=== PATIENT | female | born 1945 | race Caucasian/White ===

== ENCOUNTER 2016-07-26 11:03 | Inpatient (IN) | payer MEDICARE ==
[~2016-07-26] VITALS: Ht 165.1 cm; Wt 60.8 kg
[2016-07-26] VITALS (7 sets, daily range): BP systolic 98–163; BP diastolic 59–90; PULSE 80–96; RESP 20–26; O2SAT 94–97
[~2016-07-26 11:03] MED LIST: ACET1TAB12 PO; ALBU2.5V4 INHALATION; ALBU90AE IH; ASPI-973 PO; CHOL100045 PO; CITA20TA11 PO; CYAN500T53 SL; FLUT9.9S NS; FUR20 PO; LORA0.5T PO; LORA1TAB PO; METO25TA6 PO; MULT-1018 PO; MV,I66.7 PO; OXYB10TA PO; POTA10CA42 PO; PROC-4 PO; RANI150T11 PO; SYMINH INHALATION; TIOT18CA3 IH; VIT1TABL83 PO
--- NOTE | 2016-07-26 11:05 | ED.REPORT ---
HPI-General Illness Date of Service July 26, 2016 ED Provider: The patient is a 71 year old female with history of lung cancer s/p left pneumonectomy, breast cancer s/p lumpectomy, upper arm blood clot related to a PICC line, COPD, hypertension, hyperlipidemia, prior pneumothorax, and atrial fibrillation who was brought to the emergency department by EMS from urgent care for shortness of breath that has been worsening over the last 2 weeks. The patient had a room air saturation of 77 % when she arrived at urgent care with otherwise stable vitals. Her oxygen saturation increased to 96 % on a nonrebreather. She also complains of symptoms on her tongue. She denies chest pain, sputum production or fever. She is on oxygen at home. The patient would want to be a full code and full intubation. Nursing Notes Stated Complaint: SOB Nursing Notes Reviewed: Yes Allergies: Coded Allergies: dextromethorphan (Verified Allergy, Severe, causes hives, 02/17/15) Replaces NYQUIL doxylamine (Verified Allergy, Severe, causes hives, 02/17/15) Replaces NYQUIL guaifenesin (Unverified Allergy, Severe, hives, 02/17/15) pseudoephedrine (Verified Allergy, Severe, causes hives, 02/17/15) Replaces NYQUIL hydrocodone (Verified Adverse Reaction, Intermediate, Nausea,Vomiting, ) oxycodone (Verified Adverse Reaction, Intermediate, Nausea,Vomiting, 02/17) Uncoded Allergies: NUNEZ DEPILLATORY (Allergy, Severe, SKIN RASH, 02/01/11) Scheduled Aspirin (Aspirin) 81 Mg Tablet 81 MG PO QAM Bupropion ER (Wellbutrin XL) 150 Mg Tab.er.24h 150 MG PO DAILY Cholecalciferol (Vitamin D3) (Vitamin D) 1,000 Unit Capsule 1,000 UNIT PO QAM Citalopram (Citalopram) 20 Mg Tablet 20 MG PO QAM Cyanocobalamin (Vitamin B-12) (Vitamin B-12) 500 Mcg Tab.subl 500 MCG SL QAM Furosemide (Furosemide) 20 Mg Tab 20 MG PO QAM Letrozole (Letrozole) 2.5 Mg Tablet 2.5 MG PO DAILY Metoprolol Tartrate (Metoprolol Tartrate) 25 Mg Tablet 25 MG PO DAILY Oxybutynin Chloride ER (Oxybutynin Chloride ER) 5 Mg Tab.er.24 5 MG PO DAILY Pilocarpine (Pilocarpine) 5 Mg Tablet 5 MG PO DAILY Potassium Chloride (Potassium Chloride) 10 Meq Capsule.er 10 MEQ PO DAILY TAKE WITH FOOD Ranitidine (Zantac) 150 Mg Tablet 150 MG PO QAM Vit B Comp/C/FA/Iron/Vit E (Vitamin B Complex Tablet) 1 Each Tablet 1 EACH PO DAILY Scheduled PRN Acetaminophen/Codeine 300-30mg (Tylenol/Codeine #3) 1 Each Tablet 1 TABLET PO Q6H PRN PRN Pain Lorazepam (Lorazepam) 1 Mg Tablet 0.5-1 MG PO BID PRN PRN For Anxiety Prochlorperazine Maleate (Compazine) 10 Mg Tablet 10 MG PO Q6H PRN PRN For Nausea General Time Seen by MD: 11:05 Chief Complaint Other (shortness of breath) Hx Obtained From: Patient, EMS Arrived By: Ambulance Sudden in Onset?: No Onset Occurred: More than a week ago... Symptom Duration: Since onset Severity: Current: No pain currently Severity: Maximum: No pain Recent Healthcare: No recent hospitalization, Recent doctor visit Similar Sx Previous: Yes Past Medical History Past Medical History Notes: Oncologist: Dr. Díaz The patient would want to be a full code and full intubation, discussed today 07/26/16 Past Medical History Lung cancer s/p pneumonectomy Breast cancer s/p lumpectomy Hx of upper arm blood clot related to a PICC line, no PEs COPD Hypertension Anxiety Hyperlipidemia GERD Depression Atrial fibrillation Hx of pneumothorax Hx of kidney failure Hx of lower GI bleeding Past Surgical History Left pneumonectomy Lumpectomy Family History Noncontributory Smoking History Unknown if Ever Smoker Social History Other Social History: Good social support, , Local resident Ambulatory Status Independent Review of Systems Full Review of Systems Constitutional: Denies: Fever Respiratory: Reports: Shortness of breath, Denies: Prod cough, bloody, Prod cough, brown, Prod cough, clear, Prod cough , green, Prod cough, white, Prod cough, yellow Cardiovascular: Denies: Chest pain Complete sys rev & neg: except as marked. Physical Exam Vital Signs Vital Signs Date Time Temp Pulse Resp B/P Pulse Ox O2 Delivery O2 Flow Rate FiO2 07/26/16 13:00 37 80 20 130/89 94 BiPAP 07/26/16 12:07 95 22 94 highflow 07/26/16 11:03 37 96 26 163/90 96 Non-Rebreather 15 Initial VS: Reviewed Head / Eyes: Atraumatic, Normocephalic, PERRL ENT: Mucous membranes moist, Conjunctiva normal, No scleral icterus Neck: Supple, Non-tender, Full range of motion Abdomen / GI: Soft, Non-tender, No guarding, No rebound, No distention Extremities: Vascular intact, Neuro intact, No swelling, No tenderness Skin: Warm, Dry, No cyanosis Neurologic: Alert, Oriented, Nonfocal Psychiatric: Mood/affect normal, Behavior normal, Normal thought content General/Constitutional: Awake Distress / Hydration: Positive: Distress moderate Resp Distress / Stridor: Positive: Resp distress severe Diminished Breath Sounds: Positive: Decreased bilateral She is in acute respiratory distress. She is only able to speak in 1-2 word sentences. She is on a nonrebreather. Her sats were initially 77 % on room air when she came in and are up to 95-96 % on nonrebreather. She is still significantly dyspneic. Minimal air movement throughout all lung romano, so minimal that I cannot hear any wheezing or rhonchi. There is a power port in her left upper chest. Cardiovascular: Regular rhythm, Heart sounds NL, No gallop, No murmurs, No rubs Heart Rate / Rhythm: Positive: Tachycardia Peripheral hypoxia with purplish lips and fingers. Lower Extremity / Pelvis / MS: No edema Interpretation & Diagnostics 07/10/[address] W/ CONTRAST: Interval development of a 6 mm and a punctate nodule within the right upper lobe. There overall nonspecific. Given history of breast cancer, interval followup and attention to these areas are recommended. Lab Results Interpretation Result Diagram: 07/26/16 1115 07/26/16 1115 Test 07/26/16 11:15 White Blood Count 11.3th/mm3 (3.8-10.1) Red Blood Count 4.69mil/mm3 (3.90-5.20) Hemoglobin 15.1g/dL (12.0-15.6) Hematocrit 44.0% (35.0-46.0) Mean Corpuscular Volume 93.8fL (81-100) Mean Corpuscular Hemoglobin 32.2pg (27.0-35.0) Mean Corpuscular Hemoglobin Concent 34.3% (32.0-37.0) Red Cell Distribution Width 13.6% (12.3-15.4) Platelet Count 227bil/L (150-400) Neutrophils (%) (Auto) 76.2% (40-74) Lymphocytes (%) (Auto) 14.0% (14-46) Monocytes (%) (Auto) 8.6% (4-12) Eosinophils (%) (Auto) 0.6% (0-5) Basophils (%) (Auto) 0.2% (0-3) D-Dimer 2.19mg/L FEU (<0.50) Sodium Level 142mEq/L (134-144) Potassium Level 3.9mEq/L (3.5-5.2) Chloride Level 105mEq/L (97-108) Carbon Dioxide Level 20mmol/L (18-29) Blood Urea Nitrogen 13mg/dL (8-27) Creatinine 0.78mg/dL (0.57-1.00) Estimat Glomerular Filtration Rate 105mL/min (>59) Glucose Level 116mg/dL (60-99) Lactic Acid Level 1.9mmol/L (0.4-2.0) Calcium Level 9.4mg/dL (8.5-10.1) Magnesium Level 1.7mg/dL (1.6-2.6) Total Bilirubin 0.5mg/dL (0.0-1.2) Aspartate Amino Transf (AST/SGOT) 18U/L (0-50) Alanine Aminotransferase (ALT/SGPT) 15U/L (0-32) Alkaline Phosphatase 94U/L (25-165) Troponin T < 0.010ug/L (0.0-0.011) Pro-B-Type Natriuretic Peptide 1315pg/mL (0-301) Total Protein 7.8g/dL (6.4-8.4) Albumin 4.1g/dL (3.4-5.0) Procalcitonin 0.06ng/mL (0.00-0.08) ECG Interpretation ECG Interpretation: Sinus arrhythmia with a rate of 96 LAD Nonspecific T abnormalities, anterior leads Prolonged QT interval Poor quality due to respiratory distress Time: 11:35 Interpreted by: ED physician ABG Interpretation ABG Interpretation: 7.401/38/60.7/23.2/-0.8 Exam Performed by: [facility] X-Ray Chest Interpretation Chest Xray Interpretation: IMPRESSION: Unchanged exam demostrating left hemithorax opacificatin, with likely scarring in the right middle lobe. Chronic changes in the right base are stable. Dictated by: Kristin Green M.D. on 07/26/2016 at 11:41 Interpretation / Wet Read by: Interpret - Radiologist CT Chest Interpretation IMPRESSION: 1. No evidence of pulmonary embolism in the residual pulmonary arteries. 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 2. Postsurgical changes consistent with prior left pneumonectomy again noted with pleural thickening and fluid opacification of the left hemithorax. 3. Interval increased septal thickening and diffuse groundglass opacities within the right lung may represent pulmonary edema, pulmonary venous obstruction, or lymphangitic spread of disease. 4. New small right pleural effusion with bandlike opacities in the right lung base which may represent scarring, postradiation changes, or pneumonia. 5. Increase in size of a right upper lobe nodule which is nonspecific and may represent metastatic disease. 6. Progressive increase in mediastinal and right hilar lymphadenopathy consistent with baljinder metastases. Dictated by: Curtis Fernandez M.D. on 07/26/2016 at 12:05 Study type: CT pulm angiogram Interpretation / Wet Read by: Interpret - Radiologist Re-Eval/Medical Decision Med Decision/Clinical Course The patient has significant phobias when going to doctors offices with many repeated negative experiences. We will be assertive about controlling her anxiety as well. Dramatic hypoxic respiratory failure on presentation. Did better with 100% nonrebreather we did try BiPAP to do better with this but felt claustrophobic. Switched to high flow nasal cannula and at 4 L and 60% saturations were stable in the 95% range. Started with presumed pneumonia and sepsis antibiotics given steroids chest x-ray confirmed absence of pneumothorax. D-dimer was elevated multiple risk factors for pulmonary embolism CT scan was done which shows no pulmonary embolism but suggests increased interstitial findings most likely consistent with vascular overload very likely related to progression of her metastatic disease. She has continued to do well with a high flow oxygen. Did discuss CODE STATUS with patient and her . On arrival in the emergency room and before known CT results she did want to continue to be a full code and full intubation. In light of the CT scan and concern for progressive metastatic disease despite her current immunotherapy this discussion will need to be continued while she is an inpatient. All findings of the CT scan were reviewed with the patient and her Stable at time of transfer to the floor continued hypoxic respiratory failure 100% nonrebreather/high flow oxygen required. Best explanation at this point is progressive of her metastatic disease but possibility of heart failure and pneumonia are both entertained. Given lack of pneumonia findings at this point normal white blood cell count normal lactic acid I do not suspect sepsis currently Likely benefit from a palliative care if not even hospice consult with this stay. Care was discussed with Dr. Díaz and he will be involved in her hospital stay including answering questions about progression of her disease and recent CT scan findings Source of Hx: Old records, EMS Time of Eval: 11:15 Re-Evaluation/Progress Note: Discussed the patient's case with her family member. Time of Eval: 11:22 Re-Evaluation/Progress Note: Extensive discussion with her regarding plans, code status, and concerns. All questions were addressed. Time of Eval: 13:42 Re-Evaluation/Progress Note: Rechecked the patient. Discussed results, diagnosis, and plan for admission. All questions were addressed. Consultation #1: Referral / Consult Name: Cayetano Díaz MD Consulted With: Soda Maker Call Returned at: 13:51 President And Cmo: Agrees with eval, Agrees with plan Note: He agrees to consult. Consultation #2: Referral / Consult Name: Kevin Mancilla MD Consulted With: Hospitalist Requested Call at: 13:46 Call Returned at: 14:20 President And Cmo: Will see patient, Agrees with eval, Agrees with plan, Accepts admit Counseled Regarding: Diagnosis, Lab results, Need for admission Discharge & Departure Primary Impression: Respiratory failure with hypoxia Chronicity: acute Qualified Code: J96.01 - Acute respiratory failure with hypoxia Disposition: ADMITTED TO HOSPITAL Discharge Condition All VS Reviewed: Yes Condition: Stable Referrals: Jone Bull MD (PCP) Crit Care Except Billable Proc Time Spent: 30-74 minutes Services Performed: Patient management by me, Time spent at bedside, Reviewing test results, Reviewing imaging, Discussing patient care, Documentation in record, Time with fam/surrogate Scribe Attestation Portions of this note were transcribed by Zeenat Yu. I, Dr. Vasquez personally performed the history, physical exam and medical decision-making; I reviewed and confirmed the accuracy of the information in the transcribed note. Signed by: Abel Madrigal, 07/26/2016 at 1430. copies to: Cayetano Díaz MD; Jone Bull MD, Shawna L MD July 26, 2016 11:05 Zeenat Yu July 26, 2016 11:13 [place] July 26, 2016 11:43
[2016-07-26] MEDS ORDERED: Ondansetron 2 mg/mL 2 mL Inj ONE (11:17)
[2016-07-26] MEDS ORDERED: 0.9% Sodium Chloride 1,000 ML IV ONE (11:21)
[2016-07-26] MEDS ORDERED: Vancomycin Dose per Pharmacist XX ONE (11:25)
[2016-07-26] MEDS ORDERED: levoFLOXacin Inj 750 MG in IV Premix 1 EACH IV ONE (11:25)
[2016-07-26] MEDS ORDERED: Albuterol-Ipratropium 3 mL Inhalation Solution NEB ONE (11:25)
[2016-07-26] MEDS ORDERED: MethylprednisoLONE Sodium Succinate 62.5 mg/mL 2 mL Inj IVPUSH ONE (11:25)
[2016-07-26] MEDS ORDERED: Piperacillin-Tazo 3.375 Gm Inj 3.375 GM in Dextrose 5% Minibag Plus 50 ML IV ONE (11:25)
[2016-07-26 11:38] LABS: BASOPHILS % (AUTO) 0.2 % (0-3); EOSINOPHILS % (AUTO) 0.6 % (0-5); MONOCYTES % (AUTO) 8.6 % (4-12); Mean Corpuscular Hemoglobin 32.2 pg (27.0-35.0); Mean Corpuscular Volume 93.8 fL (81-100); NEUTROPHILS % (AUTO) 76.2 % (40-74); Platelet Count 227 bil/L (150-400)
--- NOTE | 2016-07-26 11:46 | DRSVH ---
PROCEDURE: X-RAY CHEST ONE VIEW, PORTABLE ([id number]) INDICATIONS: respiratory distress TECHNIQUE: One view of the chest was acquired. COMPARISON: [facility], CT, CT CHEST W CON, 07/10/2016, 13:27. [facility], CR, XR CHEST 2VW, 02/17/2016, 12:21. FINDINGS: Surgical changes and devices: Left port a catheter is noted. Clips are present overlying the chest. Lungs and pleura: There is complete opacification of the left hemithorax, unchanged. There is linea r right mid lobe opacification, unchanged. Chronic interstitial changes are present in the right bas e unchanged. Mediastinum: Mediastinal contours appear normal. Heart size is normal. Bones and chest wall: No suspicious bony lesions. Overlying soft tissues appear unremarkable. IMPRESSION: Unchanged exam demostrating left hemithorax opacificatin, with likely scarring in the ri ght middle lobe. Chronic changes in the right base are stable. Dictated by: Kristin Green M.D. on 07/26/2016 at 11:41 Approved by: Kristin Green M.D. on 07/26/2016 at 11:44
--- NOTE | 2016-07-26 11:56 | ABG ---
DateTimeAnalyzed 11:51:00 -_ pH ____7.401 - 7.350 7.450 pCO2 ___38.1__ -mmHg 35.0 45.0 pO2 ___60.7__ -mmHg 69.0 116 HCO3- ___23.2__ -mmol/L 22.0 26.0 ABE ___-0.8__ -mmol/L -2.0 2.0 tHb ___14.9__ -g/dL O2Hb ___88.9__ -% COHb ____1.4__ -% MetHb ____0.8__ -% sO2 ___90.9__ -% FIO2 ___60.0__ -% Drawn By JJ - Date/Time Notified____ 11:56:00 -_ Spontaneous_RR ___22.0__ -b/min Liter_Flow ___40.0__ -L/min Oxygen Device 1 _HIGHFLOW - Notified By JJ - Notified Whom DR LAURSEN - B 755 -mmHg tO2 ___18.6__ -Vol% Graeme test _Positive -
[2016-07-26] MEDS ORDERED: Vancomycin Inj 1,250 MG in 0.9% Sodium Chloride 250 ML IV ONE (12:15)
[2016-07-26 12:19] LABS: Magnesium 1.7 mg/dL (1.6-2.6); TROPONIN T < 0.010 ug/L (0.0-0.011)
--- NOTE | 2016-07-26 13:22 | DRSVH ---
PROCEDURE: CT ANGIO CHEST PULMONARY EMBOLISM ([id number]) INDICATIONS: Respiratory distress and history of breast cancer TECHNIQUE: After the administration of intravenous contrast, 2 mm thick sections acquired from the pulmonary api reshma to the posterior costophrenic angles. 3-dimensional maximum intensity projection (MIP) coronal a nd sagittal reformats were then acquired through the thorax. For radiation dose reduction, the follo wing was used: automated exposure control, adjustment of mA and/or kV according to patient size. COMPARISON: [facility], CT, CT ANGIO CHEST PE, 12/16/2015, 10:30. [facility], [place], PET NECK TO MID THIGH STD, 07/03/2016, 8:58. [facility], CT, CT CHEST W CON, 2016, 13:27. [facility], CR, XR CHEST 1VW (PORTABLE), 07/26/2016, 11:17. FINDINGS: Image quality: There is mild streak artifact from patient's surgical clips. Pulmonary arteries: Postsurgical changes are demonstrated status post left pneumonectomy. The remai kasia pulmonary arteries demonstrate no filling defects to suggest pulmonary embolism. The pulmonary arteries are enlarged suggesting pulmonary arterial hypertension. Lungs and pleura: There are postsurgical changes consistent with prior left pneumonectomy with a thi ck enhancing rind and fluid in the left hemithorax. On the right, there is a new small right pleural effusion. There is increased septal thickening and increased diffuse glass opacities. The findings may represent edema, sequelae of pulmonary venous obstruction, or lymphangitic spread of disease. T here are bandlike opacities redemonstrated in the right lung base likely representing scarring. Ther e is a small irregular nodule within the right upper lobe measuring up to 7 mm on series 7 image 17 w hich is slightly increased in size from the prior study. Mediastinum: Heart size is normal, without pericardial effusion. There is a left chest wall subclav rachna Port-A-Cath with the tip extending into the right atrium. Thoracic aorta is normal in caliber an d enhancement. There are multiple enlarged mediastinal and right hilar lymph nodes redemonstrated in cluding a representative personal service precarinal node measuring up to 1.4 cm in short axis as well as confluent hi lar and subcarinal nodes. These are progressively increased compared to the prior studies and are co nsistent with metastatic disease. Esophagus is normal in caliber, with a small hiatal hernia. Bones and chest wall: No definite suspicious bony lesions. Ribs and thoracic spine appear intact th roughout. The visualized thyroid is prominent in size but demonstrates no discrete nodules. No axil jimmy or supraclavicular adenopathy. Abdomen: Visualized upper abdomen demonstrates a few small dependent gallstones in the gallbladder. No definite gallbladder wall thickening or pericholecystic fluid. IMPRESSION: 1. No evidence of pulmonary embolism in the residual pulmonary arteries. Surgical absence of the le ft pulmonary arteries is redemonstrated. 2. Postsurgical changes consistent with prior left pneumonectomy again noted with pleural thickening and fluid opacification of the left hemithorax. 3. Interval increased septal thickening and diffuse groundglass opacities within the right lung may represent pulmonary edema, pulmonary venous obstruction, or lymphangitic spread of disease. 4. New small right pleural effusion with bandlike opacities in the right lung base which may represe nt scarring, postradiation changes, or pneumonia. 5. Increase in size of a right upper lobe nodule which is nonspecific and may represent metastatic d isease. 6. Progressive increase in mediastinal and right hilar lymphadenopathy consistent with baljinder metasta ses. Dictated by: Curtis Fernandez M.D. on 07/26/2016 at 12:05 Approved by: Curtis Fernandez M.D. on 07/26/2016 at 12:20
--- NOTE | 2016-07-26 13:58 | ABG ---
DateTimeAnalyzed 11:51:00 -_ pH ____7.401 - 7.350 7.450 pCO2 ___38.1__ -mmHg 35.0 45.0 pO2 ___60.7__ -mmHg 69.0 116 HCO3- ___23.2__ -mmol/L ABE ___-0.8__ -mmol/L tHb ___14.9__ -g/dL O2Hb ___88.9__ -% COHb ____1.4__ -% MetHb ____0.8__ -% sO2 ___90.9__ -% FIO2 ___60.0__ -% Drawn By JJ - Date/Time Notified____ 11:56:00 -_ Notified By JJ - Notified Whom DR LAURSEN - B 755 -mmHg tO2 ___18.6__ -Vol% Graeme test _Positive -
[2016-07-26] MEDS ORDERED: Albuterol-Ipratropium 3 mL Inhalation Solution NEB PRN (14:20)
[2016-07-26] MEDS ORDERED: Polyethylene Glycol (PEG) 17 Gm Powder PO PRN (14:20)
[2016-07-26] MEDS ORDERED: Ondansetron 2 mg/mL 2 mL Inj IVPUSH PRN (14:20)
[2016-07-26] MEDS ORDERED: Alum-Mag Hydrox-Simeth 30 mL Suspension PO PRN (14:20)
[2016-07-26] MEDS ORDERED: OXYB5TAB PO (14:49)
[2016-07-26] MEDS ORDERED: LETR2.5T4 PO (14:49)
[2016-07-26] MEDS ORDERED: BUPR-97 PO (14:49)
[2016-07-26] MEDS ORDERED: PILO5TAB2 PO (14:49)
[2016-07-26] MEDS ORDERED: KLO5T PO ×2 (14:49→15:53)
[2016-07-26] MEDS: 0.9% Sodium Chloride 250 ML IV SCH (16:22)
[2016-07-26] MEDS ORDERED: Sodium Chloride LOK Flush 10 mL Syringe IVFLUSH PRN ×2 (16:25)
[2016-07-26] MEDS ORDERED: HepLOK Flush 100 unit/mL 5 mL Inj IVFLUSH PRN (16:25)
--- NOTE | 2016-07-26 16:27 | PCM.HPMED ---
Subjective Date of Service July 26, 2016 Primary Provider: Admitting Physician: Kevin Mancilla MD Primary Care Physician: Jone Bull MD Attending Physician: Kevin Mancilla MD Admit Status: From the Emergency Department, Admit to [facility] Team Chief Complaint: 71-year-old woman with history of recurrent breast cancer, prior history of non- small cell lung cancer and COPD presents with acute on chronic respiratory failure with hypoxia. History of Present Illness: The patient has chronic lung disease with a diagnosis of COPD, as well as history of left lung resection for NSCLC. She has been dependent on 2-4 L home oxygen for many months. Approximately 1 month ago she began to experience worsening dyspnea. She was evaluated in oncology clinic and home oxygen flow rate was increased from 2 to 4 L in early 07/2016. Patient and her notes that her dyspnea has been progressive since that time, frequently failing to maintain 90% saturation on 4 L at home. Her dyspnea is worse with activity. Not orthopnea. No cough, fever or phlegm. No pleuritic pain. She is largely limited bed to chair with minimal activities at home. Her decline has been continuous. It takes her 4 hours to get ready for doctors appointments which she did today, and subsequently found herself so breathless she presented to emergency department. She was noted to have 88% oxygen saturation on 6L O2. She was treated with high-flow O2, maintaining barely adequate O2 saturation. The patient has a complicated cancer history. After initial treatment of breast cancer in 2009 she was recently noted to have recurrent breast nodules. A biopsy of the right breast revealed invasive ductal carcinoma. Tumor marker CA.27.29 is elevated. She recently underwent PET scanning on 07/04/16 which revealed chest wall and pericarinal lymph nodes. She has been treated with letrozole. She has recently been treated with immune checkpoint therapy ( nivolumab) infusions every 2 weeks, last infusion was 2 wk ago. Review of Systems: 11 systems were reviewed: Notable findings included in history of present illness. Additional findings include tongue with painful dysesthesia. Frequent headaches 4 months. Nausea 6 weeks without vomiting. Appetite normal. Pain and limited mobility due to right hip DJD, usually treated with cortisone injection. Allergies Coded Allergies: dextromethorphan (Verified Allergy, Severe, causes hives, 02/17/15) Replaces NYQUIL doxylamine (Verified Allergy, Severe, causes hives, 02/17/15) Replaces NYQUIL guaifenesin (Unverified Allergy, Severe, hives, 02/17/15) pseudoephedrine (Verified Allergy, Severe, causes hives, 02/17/15) Replaces NYQUIL hydrocodone (Verified Adverse Reaction, Intermediate, Nausea,Vomiting, ) oxycodone (Verified Adverse Reaction, Intermediate, Nausea,Vomiting, 02/17) Uncoded Allergies: NUNEZ DEPILLATORY (Allergy, Severe, SKIN RASH, 02/01/11) Home Medications Tylenol 3 every 6 hours when necessary Aspirin 81 mg daily Propine 150 daily Cholecalciferol 1000 units daily Citalopram 20 mg daily Clonazepam 0.5 mg twice a day 12 500 g daily Furosemide 20 mg daily Letrozole 2.5 mg daily Lorazepam 0.5-1 mg when necessary Metoprolol 25 mg daily Oxybutynin extended release 5 mg daily Pilocarpine 5 mg twice a day Potassium chloride 10 mEq 3 times a day before meals Prochlorperazine 10 mg every 6 hours when necessary for nausea Ranitidine 150 mg daily Multivitamin . PMH # Breast cancer - 2010 resected, 2nd R breast nodule 2016 HER2/miguel treated with lumpectomy + letrozole # NSCLC squamous cell lung cancer - s/p SBRT and chemotherapy, currently on nivolumab # Status post pneumonectomy left lung # COPD # Atrial fibrillation - no anticoagulation due to prior GI bleed on warfarin therapy # history DVT # Anxiety Social History Hx Alcohol Use: Yes (just on holidays.) Hx Substance Use: No Hx Tobacco Use: Yes Smoking Status: Unknown if Ever Smoker Living Arrangement: with Family (. Daughter lives in [place].) Exam Vital Signs Vital Sign - Last Date Time Temp Pulse Resp B/P Pulse Ox O2 Delivery O2 Flow Rate FiO2 07/26/16 13:00 37 80 20 130/89 94 BiPAP 07/26/16 11:03 15 Exam Constitutional: Alert, able to talk to limited extent, moderate respiratory distress; vital signs noted Eyes: sclerae anicteric, no conjunctival pallor, ENMT: ears, nose atraumatic; oral mucosa dry Neck: supple, JVD absent, no nodules Chest: symmetric, no pain or lesions Resp: auscultation generally clear on right side, dull and left, no wheezes, rales; unable to reposition to assess dullness Cardiac: S1, S2, regular, no murmur Abdomen: bowel sounds present, nontender, no organomegaly Musculoskeletal: no joints with acute erythema, swelling Skin and soft tissues: no rash; no pitting edema Peripheral pulses: normal at wrist, feet Lymphatic: no adenopathy cervical Neurological: Cranial Nerves - face symmetric Reflexes - BJ, KJ symmetric 2+ Motor - 5/5 strength, normal tone Coordination - normal movement, no tremor Sensory - light touch reduced and feet Psych & Mental Status - oriented Lab and Diagnostics Labs Procalcitonin 0.06; lactic acid 1.6 ProBNP 1315 AB data: DateTimeAnalyzed 11:51:00 -_ pH ____7.401 - 7.350 7.450 pCO2 ___38.1__ -mmHg 35.0 45.0 pO2 ___60.7__ -mmHg 69.0 116 FIO2 ___60.0__ -% DateTimeAnalyzed 11:51:00 -_ pH ____7.401 - 7.350 7.450 pCO2 ___38.1__ -mmHg 35.0 45.0 pO2 ___60.7__ -mmHg 69.0 116 FIO2 ___60.0__ -% . Result Diagram: 07/26/16 1115 07/26/16 1115 X-Rays, CTs and MRIs PROCEDURE: CT ANGIO CHEST PULMONARY EMBOLISM ([id number]) FINDINGS: Lungs and pleura: There are postsurgical changes consistent with prior left pneumonectomy with a thick enhancing rind and fluid in the left hemithorax. On the right, there is a new small right pleural effusion. There is increased septal thickening and increased diffuse glass opacities. The findings may represent edema, sequelae of pulmonary venous obstruction, or lymphangitic spread of disease. There are bandlike opacities redemonstrated in the right lung base likely representing scarring. There is a small irregular nodule within the right upper lobe measuring up to 7 mm on series 7 image 17 which is slightly increased in size from the prior study. Mediastinum: Heart size is normal, without pericardial effusion. There is a left chest wall subclavian Port-A-Cath with the tip extending into the right atrium. Thoracic aorta is normal in caliber and enhancement. There are multiple enlarged mediastinal and right hilar lymph nodes redemonstrated including a food service sales representatives precarinal node measuring up to 1.4 cm in short axis as well as confluent hilar and subcarinal nodes. These are progressively increased compared to the prior studies and are consistent with metastatic disease. Esophagus is normal in caliber, with a small hiatal hernia. IMPRESSION: 1. No evidence of pulmonary embolism in the residual pulmonary arteries. 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 2. Postsurgical changes consistent with prior left pneumonectomy again noted with pleural thickening and fluid opacification of the left hemithorax. 3. Interval increased septal thickening and diffuse groundglass opacities within the right lung may represent pulmonary edema, pulmonary venous obstruction, or lymphangitic spread of disease. 4. New small right pleural effusion with bandlike opacities in the right lung base which may represent scarring, postradiation changes, or pneumonia. 5. Increase in size of a right upper lobe nodule which is nonspecific and may represent metastatic disease. 6. Progressive increase in mediastinal and right hilar lymphadenopathy consistent with baljinder metastases. Dictated by: Curtis Fernandez M.D. on 07/26/2016 at 12:05 . Additional Diagnostics: PET Scan Chest 5/3/17: IMPRESSION: 1. Increased FDG avidity involving the left tongue base and left posterior- lateral oropharyngeal wall compared to 03/16/2016. No definite mucosal based mass identified in the region of the increased FDG uptake. Recommend correlation with direct visualization of the oropharyngeal mucosal to exclude the dorsal base mass. 2. Increased FDG uptake in the posterior lateral left chest wall situated between the left fifth-sixth ribs and the left scapula. Finding remains concerning for a metastatic disease. 3. Diffuse, increased FDG uptake involving the right chest wall/right ribs is consistent with metastatic disease. 4. Increased FDG uptake associated with the right diaphragmatic crux and the region of soft tissue thickening suspicious for metastatic disease. 5. Abnormal FDG uptake involving subcarinal and precarinal mediastinal lymph nodes compatible with metastatic lymphadenopathy. The subcarinal mediastinal lymph node is not significant change compared to prior examination. The precarinal mediastinal lymph node is new compared to prior examination and is compatible with progression of disease. 6. There is consolidation in the posterior aspect of the right midlung which demonstrates low level FDG uptake. Finding is unchanged compared prior examination and likely represents post treatment scarring. Dictated by: Kim Tinajero MD, PhD on 07/04/2016 at 15:05 Assessment & Plan 71-year-old woman with history of breast and lung cancer with underlying COPD status post left pneumonectomy presents with acute on chronic respiratory failure with hypoxia. # Acute on chronic respiratory failure with hypoxia. History suggests progressive decline. Current chest CT suggests progression of interstitial process as well as increased adenopathy. Pulmonary embolism is been ruled out. There is no hypercarbia and ventilation seems adequate. - High flow oxygen support - Bronchodilators as needed - Pulmonology consult - Decision regarding intubation is pending at time of admission # Interstitial pulmonary disease, acute. Differential seems likely inflammatory or fibrotic process, atypical infection, cancer progression, lymphangitic neoplasm. Unlikely to be heart failure or acute bacterial infection, but these would be treatable. - Continue high-dose glucocorticoid - Broad-spectrum antibiotic # Elevated BNP, acute. No history of cardiac disease. Acute diastolic heart failure related to hypoxic pulmonary process seems plausible. - Echocardiogram - Trial of Lasix - no IV fluids at present # Metabolic acidosis, acute. AG is 17 at admission. Lactate only slightly elevated. Seems likely to be tissue hypoxia related. - Monitor metabolic status, may need to liberalize hydration if she develops prerenal azotemia. # VTE prophylaxis - Lovenox Pain Evaluation: Adequate Pain Control VTE Prophylaxis: Sub-Q Enoxaparin Resuscitation Status: CPR: Attempt Resuscitation Time spent 75 min Kevin Mancilla MD July 26, 2016 16:27
[2016-07-26] MEDS: Sodium Chloride LOK Flush 10 mL Syringe IVFLUSH SCH (16:30)
[2016-07-26] MEDS ORDERED: Donnatal-Lido-Mylant 1:1:1 15 mL Syringe PO PRN (16:55)
[2016-07-26] MEDS ORDERED: Furosemide 10 mg/mL 2 mL Inj IVPUSH ONE (16:55)
[2016-07-26] MEDS: Vitamin B Complex/Vit C Tablet PO SCH (17:16)
[2016-07-26] MEDS: buPROPion XL 150 mg ER24 Tablet PO SCH (17:17)
[2016-07-26 17:20] LABS: APPEARANCE,URINE CLEAR (CLEAR,HAZY); COLOR,URINE YELLOW (YELLOW); OCCULT BLOOD,URINE NEGATIVE (NEGATIVE); PH,URINE 5.5 (5.0-8.0); UROBILINOGEN,URINE NORMAL (NORMAL)
[2016-07-26] MEDS: Vancomycin Dose per Pharmacist XX SCH (17:25)
[2016-07-26] MEDS ORDERED: Meropenem 1 Gm/100 mL NS Minibag Plus IV ONE ×2 (18:00)
[2016-07-26] MEDS ORDERED: LORazepam 0.5 mg Tablet PO PRN (18:25)
[2016-07-26] MEDS: Codeine-APAP 30-300 mg Tablet PO PRN (19:20)
--- NOTE | 2016-07-26 19:41 | CONS ---
[address] [address] CONSULTATION REPORT PATIENT: LUIZ ZAVALETA : 1945 MR#: [id number] ADMIT: 07/26/2016 JOB ID: [id number] PULMONARY/CRITICAL CARE CONSULTATION: DATE OF SERVICE: 07/26/2016 REQUESTING CLINICIAN: Dr. Mancilla, [facility] [place] Hospitalist Service. REASON FOR CONSULTATION: Hypoxemic respiratory failure and abnormal chest imaging. HISTORY OF ILLNESS: This patient is a very pleasant, 71-year-old, white female with a complex past medical history of both [id number] lung cancer and breast cancer. She is admitted now with a 3-4 week history of progressive dyspnea and hypoxemia. On the day of admission, she presented for a scheduled visit and was found to be markedly hypoxemic despite her usual supplemental oxygen at 4 L. Since admission to the Critical Care Unit, she is requiring high-flow oxygen at an FiO2 of 0.6 and 30 L/minute to maintain O2 saturation greater than 90%. She is somewhat vague and rambling historian. I was fortunately able to review her case with her treating oncologist, Dr. Díaz, and her admitting hospitalist, Dr. Mancilla. Apparently, the patient has recurrent squamous cell carcinoma of the lung proven on EBUS biopsy of a subcarinal node in April of this year. She has a history of previous left pneumonectomy for her original diagnosis in 2009. She has had bilateral breast cancers treated with lumpectomy on the left and lumpectomy and adjuvant radiotherapy on the right. She has noticed increasing dyspnea over the last three or four weeks. She denies cough but does report some subjective fevers and chills. She was concerned a couple of days ago when she noticed that she had blood in her oral secretions. When asked whether this was expectorated sputum, she denied it, but it is still unclear exactly where these reddish secretions originated. She has a history of atrial fibrillation and a DVT for which she has been systemically anticoagulated in the past, although I do not believe that she is on any systemic anticoagulation currently. PAST MEDICAL HISTORY: 1. [id number] lung cancer, status post left pneumonectomy 2010, 1.1. Recent documented recurrence based on endobronchial ultrasound-guided biopsy of the subcarinal lymph node, 1.2. Right-sided nodules which were initially biopsy negative for malignancy but were treated with Taxol and carboplatin leading to nodule regression. 2. Breast cancer, T1 N0, right-sided breast cancer with infiltrating ductal carcinoma, ER/MI positive, status post lumpectomy, sentinel biopsy March 2015 with chest radiation, 2.1. Recently steadily elevating CA 27 and 29 without evident macroscopic recurrent disease, 2.2. Early stage breast cancer, left breast, 2009, status post breast conserving therapy and external beam radiation. 3. Atrial fibrillation, currently in sinus rhythm. 4. Prior history of DVT. 5. COPD. 6. History of pneumonia. 7. Anxiety. OUTPATIENT MEDICATIONS: Tylenol, aspirin, citalopram, clonazepam, furosemide, letrozole, lorazepam, metoprolol, oxybutynin, pilocarpine, potassium, prochlorperazine, ranitidine, multivitamin, nivolumab. DRUG ALLERGIES: 1. DEXTROMETHORPHAN. 2. DOXYLAMINE. 3. GUAIFENESIN. 4. PSEUDOEPHEDRINE. 5. OXYCODONE. 6. HYDROCODONE. CURRENT INPATIENT MEDICATIONS: Include: 1. Meropenem 1000 mg q.8 h. 2. Vancomycin 1000 mg IV q.12 h. 3. Albuterol ipratropium small volume nebulizer q.4 h. p.r.n. 4. Bupropion XL 150 mg p.o. daily. 5. Cholecalciferol 1000 units p.o. daily. 6. Citalopram 20 mg p.o. daily. 7. Clonazepam 0.5 mg p.o. b.i.d. 8. Cyanocobalamin B12 p.o. daily. 9. /lidocaine/Mylanta 15 cc p.o. daily p.r.n. 10. Enoxaparin (Lovenox) 40 mg subcu daily. 11. Pepcid 20 mg p.o. daily. 12. Letrozole 2.5 mg daily. 13. Lorazepam 2 mg x1. 14. Metoprolol 25 mg p.o. daily. 15. Morphine p.r.n. 16. Zofran p.r.n. 17. Oxybutynin 2.5 mg p.o. b.i.d. 18. Pilocarpine 5 mg p.o. b.i.d. 19. Polyethylene glycol powder 17 g p.o. daily. 20. Prochlorperazine p.r.n. 21. Potassium chloride 10 mEq p.o. daily. SOCIAL HISTORY: She is and disabled. She is a former smoker. FAMILY HISTORY: Noncontributory. REVIEW OF SYSTEMS: Dyspnea, weakness, anxiety, depression, right hip pain and anterior chest wall pain, anorexia. A 12 system review complete and positives noted. PHYSICAL EXAMINATION: This is thin, apprehensive, acutely and chronically ill woman who speaks in short sentences while wearing high-flow nasal cannula. Her heart rate is 110 and irregular respirations are 28, O2 saturation is 91% to 95% on FiO2 of 0.6 and 30-40 L flow through a high-flow cannula. She has been afebrile. HEENT: She has bitemporal wasting. The gaze appears conjugate. Pupils are equal and round. Conjunctivae not injected. Sclerae anicteric. Oropharynx shows moist mucosa. She has several missing teeth. No ulceration or exudate in visible mucosa. The trachea is midline. There is no detectable cervical or supraclavicular lymphadenopathy or mass. I cannot feel her thyroid. Chest shows absent breath sounds over the left chest. She has presently well-preserved air movement over the right chest with scant rales but no other adventitious sounds are heard. Cardiac exam shows regular rhythm with frequent extrasystoles. There is no murmur, gallop or rub. Upper extremities show a little arachnodactyly. Nails are pale. No pathologic change. No synovitis. No cyanosis. No clubbing. Lower extremities show trace edema bilaterally. Abdomen is soft. She has some tenderness over the right upper quadrant. I cannot detect a discrete liver edge. There is no mass. Bowel tones are present. No bruits. Neurologic: She moves all four extremities to command. Face appears symmetric. Gaze appears conjugate. Tongue appears midline. Extraocular movements appear full. DATABASE: Per electronic medical record. Her chest CT scans from today July 10 and December 17 of last year are reviewed concurrently and compared. In addition, I have reviewed at least the written reports of multiple other imaging studies including recent PET scans. Her most recent CT scan shows her chronic reticular fibrotic changes in the right mid lung presumably related to previous radiation therapy. In addition, she has significant emphysematous change more prominent at her remaining right lung base. She has slight progression of some right hilar and subcarinal lymphadenopathy in comparison to the previous study from December of last year. Most striking development since her more recent study of July 10 is the very homogeneous development of diffuse ground glass. The remainder of the database is per the electronic medical record. Her CBCs shows hemoglobin of 15, hematocrit 44, WBC 11.3, and 227,000 platelets. Her sodium is 142, potassium 3.9, chloride 105, total CO2 is 20. BUN 13, creatinine 0.78. Random glucose is 116. Total calcium is 9.4. Her B-type natriuretic peptide level is slightly elevated at 1315 a procalcitonin level is quite low at 0.06. IMPRESSION: Hypoxemic respiratory failure. This unfortunate woman who is status post left pneumonectomy for lung cancer, five or six years ago, now presents with progressive hypoxemic respiratory failure in the setting of recently documented baljinder recurrence of her squamous cell carcinoma and significant chronic obstructive lung disease. What is striking about her current imaging is the diffuse homogeneous ground-glass nature of her infiltrates. In my mind, this makes infectious causes much less likely and this impression is supported by the absence of fever, her normal procalcitonin level, and only minimally elevated white blood cell count. Her radiographic pattern of disease is also not particularly suggestive of lymphangitic spread which rarely progresses this quickly or this uniformly in one lung. She certainly may have some hydrostatic pulmonary edema likely due to diastolic heart disease perhaps with a component of restrictive cardiac disease from her previous radiation. Her elevated B-type natriuretic peptide level warrants trial of cautious diuresis. I am not sure what to make of her report of blood-tinged secretions as she is unable to clarify whether this was nasal drainage, expectorated sputum or oral secretions. If this were in fact clearly expectorated sputum, I would be more concerned about alveolar hemorrhage which I have seen with checkpoint inhibitors in the past and which is well reported. The other reported pulmonary syndrome associated with a checkpoint inhibitors, an immune alveolitis syndrome or organizing pneumonia, seems more consistent with her radiographic pattern and the timing of her progression. She did receive a course of steroids which she completed approximately four weeks ago, and this may have delayed her presentation with an immune alveolitis if that turns out to be the cause for her recent decline. I had a lengthy discussion with her oncologist and admitting cylinder valve repairer this evening. They have approached the patient regarding her wishes in the event of refractory hypoxemia. She will make a decision regarding whether or not to accept intubation and mechanical ventilation in that event. If she goes on to intubation, we could easily then perform bronchoalveolar lavage to exclude infection as a contributor to her current condition, although I think this is unlikely to be the case. She has been started empirically on high-dose corticosteroids and a macrolide. There are reports of using anti-TNF agents such as infliximab in addition to steroids as treatment of the alveolitis associated with checkpoint inhibitors. If she is intubated and undergoes bronchoalveolar lavage which documents the absence of infection, infliximab or another agent such as rituximab could be added. RECOMMENDATIONS: 1. Clarify patient and family wishes regarding intubation in the event of refractory hypoxemic respiratory failure. 2. Solu-Medrol 60 mg IV q.6 h. 3. Azithromycin 500 mg IV daily. 4. Legionella urinary antigen. 5. Fungitell assay, although I think that infection and even opportunistic infection seems unlikely in this case. 6. Consider bronchoalveolar lavage and the addition of TNF or anti-lymphocyte monoclonal agent if we can confirm that infection is not playing a role in her presentation. Thank you for requesting Pulmonary consultation in this very pleasant and complex woman. We will continue to follow with you while she remains seriously ill. MICHELL
--- NOTE | 2016-07-26 19:42 | PCM.ADCARE ---
Advance Care Planning Note Purpose of Encounter: To define goals of care in sitting acute on chronic respiratory failure with hypoxia Parties in Attendance: The patient, her Dr. Cayetano Zhang Dr. Miller Decisional Capacity: Patient has full decisional capacity and understood her current medical condition. Subjective: The patient and her express that she has endured against odds through several bouts of cancer therapy and numerous adverse experiences. She endorses that she would not like to on a ventilator or be trapped in prolonged and later dependence. She understands that her pulmonary reserve is so marginal that intubation is likely to be prolonged and to liver and worsening functional status. She understands that we will treat her Versed for condition such as possible infection, glucocorticoid responsive pulmonary inflammation, and/or pulmonary edema. She understands that we will also treat symptoms with a goal of maximizing patient comfort while attempting to reverse treatable medical conditions. Objective: The patient is currently requiring considerably more oxygen than usual due to subacute interstitial pulmonary process in the setting of recurrent lung and possibly breast cancer, history of pneumonectomy, and underlying COPD. Goals of Care Determinations: The patient wishes full medical care for reversible conditions. Plan: DO NOT INTUBATE. Due to her severe pulmonary status she could not undergo cardiac resuscitation without intubation therefore she is also DO NOT RESUSCITATE. CODE STATUS: DO NOT RESUSCITATE/DO NOT INTUBATE Time Spent Adv.Care Plannin minutes Adv. Care Plan Documenation: DNR/DNI order written Kevin Mancilla MD July 26, 2016 19:42
[2016-07-26] MEDS: Vancomycin 1 Gm/200 mL NS Premix IV SCH (20:18)
[2016-07-26] MEDS: MethylprednisoLONE Sodium Succinate 62.5 mg/mL 2 mL Inj IVPUSH SCH (20:18)
[2016-07-26] MEDS ORDERED: Azithromycin Inj 500 MG in Dextrose 5% w/Vial Mate 250 ML IV SCH (21:00)
--- NOTE | 2016-07-26 23:23 | HP ---
[address] [address] HISTORY AND PHYSICAL PATIENT: LUIZ ZAVALETA : 1945 MR#: [id number] ADMIT: 07/26/2016 JOB ID: [id number] REQUESTED BY: Dr. Mancilla. HISTORY OF PRESENT ILLNESS: This is a 71-year-old woman with a long history of lung and breast cancer who is admitted for respiratory failure. DIAGNOSES: 1. Acute on chronic respiratory failure. 2. History of lung cancer including a left-sided pneumonectomy for non-small cell lung cancer in September 2010. 3. Right-sided pulmonary nodules originally worked up prior to the left-sided pneumonectomy. Biopsies were negative. It was concluded that the left-sided lung cancer was unilateral and she was treated accordingly. Subsequently, the nodules on the right did grow and to avoid the risk of further biopsy it was assumed they were malignant. She was treated with Taxol and carboplatin, followed by near disappearance and treatment with SBRT to T1 disease with possible satellite nodule and she went into remission. 4. Hospitalized July through August 2011 for pneumonia and neutropenia. 5. Lower gastrointestinal bleed complicating anticoagulation, which was stabilized with transfusions in the past. 6. Prior history of atrial fibrillation. 7. The patient has had multiple evaluations with PET-CT scans to evaluate for pulmonary embolism and recurrence of tumor. 8. The patient is followed by Pulmonary to optimize what is a very borderline level of pulmonary function with underlying emphysema on the right. 9. 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 10. The patient also has a history of breast cancer originally treated in 2009 for stage I, and the second stage I, T1 N0, 3 x 3 x 1.5 mm ER/CA positive, HER2/miguel negative with sentinel node biopsy and lumpectomy in March 2015. Did not have radiation due to prior chest radiation. The patient has had a progressive mild increase in CA27-29. 11. The current issue is what the potential reversible cause of her respiratory failure is. A CT angiogram was performed on admission and this showed a number of concerning findings. The most pressing is the development of diffuse ground-glass opacities in the right lung which could be lymphangitic spread of disease, pulmonary venous obstruction or pulmonary edema. This is markedly worse than previous CT scan just two weeks ago on July 10, 2016; patient also has scarring or postradiation changes in the right lung, but more disturbing any increase in size of right upper lobe nodule and increase in mediastinal and right hilar lymphadenopathy consistent with baljinder metastases. CURRENT MEDICATIONS: 1. Meropenem 500 mg q.8 h. 2. Azithromycin 250 mg h.s. 3. Enoxaparin 40 mg daily subcutaneously. 4. Cholecalciferol. 5. Pilocarpine, or Salagen, 5 mg b.i.d. 6. Clonazepam 0.5 mg b.i.d. 7. Oxybutynin 2.5 mg b.i.d. 8. Methylprednisolone, or Solu-Medrol, 60 mg q.6 h. IV push. 9. Vancomycin 1000 mg q.12 h. 10. Acetaminophen/codeine 11. Lorazepam 0.5-0.1 mg. 12. Vitamins. 13. . 14. Metoprolol 25 mg daily. 15. Cyanocobalamin. 16. Furosemide 20 mg IV push p.r.n. 17. Patient is also on letrozole 2.5 mg. 18. Bupropion 150 mg. 19. Citalopram 20 mg. 20. Famotidine 20 mg. 21. Vitamin B complex. 22. Potassium chloride 10 mEq. 23. Aluminum hydroxide/simethicone. 24. Senna. 25. Polyethylene glycol. 26. Albuterol ipratropium. Please see medication flow sheet for additional doses and schedules. ALLERGIES: 1. NUNEZ DEPILATORY. 2. DEXTROMETHORPHAN. 3. DOXYLAMINE. 4. GUAIFENESIN. 5. HYDROCODONE. 6. OXYCODONE. 7. PSEUDOEPHEDRINE. SOCIAL HISTORY: Patient lives with her . She is retired from being a [employer] at a [employer] in [place] and her works for the [employer] I believe. REVIEW OF SYSTEMS: The patient is quite dyspneic, but very anxious. When she is able to calm down she has much more comfortable breathing and currently states that she is not lacking in oxygen. Head and neck: No headaches, visual changes. She does have a dry mouth. Cardiac: No exertional chest pain or palpitations. GI: Poor appetite, constipation. Musculoskeletal: From muscle weakness the patient is limited to mostly being in chair or in bed. PHYSICAL EXAMINATION: The vital signs show a temperature of 37.2, pulse 90, respiratory rate 20, blood pressure 98/62, pulse ox 94% on nasal cannula, but she is actually 97% on high-flow supplemental oxygen at 60%. Head and neck: Normal skin and hair. The patient is quite anxious and she is very tearful as we were discussing the basic life and issues that come up in hospital, including whether or not she would want CPR or ventilator. See comments below. Pupils equal, round, reactive without icterus or conjunctivitis. Oral mucosa is somewhat dry, but without thrush or lesions. Teeth are in fair repair. Neck is supple without palpable masses. Respiratory: Left side no audible breath sounds. She has had a pneumonectomy right side. No rales, wheezes or rhonchi. Cardiac: Rhythm is regular without murmur. Abdomen: Soft, nontender. Bowel sounds active. Extremities without edema. LABORATORY VALUES: The white count is 11.3, hemoglobin 15.1, hematocrit 44.0, platelets 227. The BUN and creatinine are 13 and 0.78. Electrolytes normal. Glucose 116. ALT, AST, alkaline phosphatase, bilirubin normal. ProBNP was 1315. CA27-29 continues to be elevated at 89.5. Procalcitonin 0.06. CT imaging is as described before. ASSESSMENT AND RECOMMENDATIONS: Respiratory failure. This may be caused by a number of different pathologies. Dr. Schmidt has made a very good case that the ground-glass infiltrates may represent alveolitis caused by nivolumab, which she has been on since April 2016. There has been a dramatic change in her lung between July 10 and current imaging which gives rise to suspicion that this may be infectious and she is on antibiotics. If this is a reaction to checkpoint inhibitor therapy then the approach would be to at least administer steroids and withhold the checkpoint inhibitor; Dr. Schmidt did talk about the possibility of a bronchoscopy if the patient decides to go this way, see discussion with the patient below. I agree with Dr. Schmidt that to develop lymphangitic spread of tumor in the last two weeks would be unusual and this is much more likely to be either an inflammatory/immunologic reaction or infection. I discussed the possible outcomes with the patient and her in the presence of Dr. Mancilla. I recommended to the patient that we should try all efforts up to, but not including intubation, and that if she did get to the point where she needed intubation we probably would not be able to save her. Therefore, we should make all efforts focused on keeping her away from that degree of respiratory failure and that she is receiving all the appropriate interventions, including antibiotics, steroids, oxygen and as needed diuresis. The patient ultimately did agree that she did not want intubation, she has had this before, and that she would be in favor of pursuing potentially fixable causes of her respiratory failure. Overall, she actually does not look much different than she does at regular clinic visits. This is because she is operating even on a daily basis with very marginal pulmonary function. The patient and her understand that all efforts are aimed at correcting the potentially fixable problems that she has, but that if she does have progressive cancer, which appears to be the case, it is very questionable whether she could ever receive effective treatment for this given her condition. In fact, the tumor burden she has demonstrated on CT imaging is not enough to explain her rapid deterioration, unless the unlikely condition of lymphangitic spread is what is going on. In other words, we would have to be very clear on what the goal of cancer treatment would be since it does not require imminent treatment anyway. The role that her history of breast cancer and the currently rising CA27-29 breast cancer marker remains undefined. She understands that our efforts should be aimed at the acute problem, and would be to try to reverse her respiratory failure and get her back home in a condition where she can enjoy life as best as possible. The consultation from hospitalist and pulmonary medicine is greatly appreciated. MICHELL
[2016-07-27] VITALS (9 sets, daily range): BP systolic 99–111; BP diastolic 61–71; PULSE 71–85; RESP 16–24; O2SAT 94–98
[2016-07-27] MEDS ORDERED: Meropenem Inj 500 MG in 0.9% Sodium Chloride 50 ML IV SCH (00:30)
[2016-07-27] MEDS: Sodium Chloride LOK Flush 10 mL Syringe IVFLUSH SCH ×3 (00:30→16:30)
[2016-07-27] MEDS: Meropenem 1 Gm/100 mL NS Minibag Plus IV SCH ×6 (01:21→17:36)
[2016-07-27] MEDS: MethylprednisoLONE Sodium Succinate 62.5 mg/mL 2 mL Inj IVPUSH SCH ×4 (04:55→20:56)
[2016-07-27 07:42] LABS: BASOPHILS % (AUTO) 0 % (0-3); EOSINOPHILS % (AUTO) 0 % (0-5); MONOCYTES % (AUTO) 2.5 % (4-12); Mean Corpuscular Hemoglobin 32.3 pg (27.0-35.0); Mean Corpuscular Volume 93.4 fL (81-100); NEUTROPHILS % (AUTO) 89.3 % (40-74); Platelet Count 209 bil/L (150-400)
[2016-07-27] MEDS: buPROPion XL 150 mg ER24 Tablet PO SCH (08:03)
[2016-07-27] MEDS: Vitamin B Complex/Vit C Tablet PO SCH (08:03)
[2016-07-27] MEDS: Furosemide 10 mg/mL 2 mL Inj IVPUSH SCH ×3 (08:16→16:10)
[2016-07-27] MEDS: Vancomycin Dose per Pharmacist XX SCH (08:30)
--- NOTE | 2016-07-27 09:19 | PCM.PNMED ---
Subjective Date of Service July 27, 2016 Subjective PULMONARY PROGRESS NOTE Attending: Dr. Schmidt/ Initial consulting physician: Dr. Claude Mancilla Overnight: No acute events reported. Patient met with multiple providers throughout the evening, including oncology, pulmonology, and primary team. Today: Patient states that she feels improved, and states that she no longer feels short of breath. She states that she was able to transition from bed to bedside commode without difficulty or increased dyspnea. She denies any fevers, nausea, vomiting, chills. She states she is tolerating the HFNC well. She continues to report blood oozing into her mouth, she does not believe it is from her gumline or nose, and she denies any cough/hemoptysis. She does report mild anxiety regarding her prognosis, current condition, and what to expect during this hospitalization. She remains hopeful. Exam Vital Signs Vital Sign - Last Date Time Temp Pulse Resp B/P Pulse Ox O2 Delivery O2 Flow Rate FiO2 07/27/16 08:09 22 95 Nasal Cannula 35 70 07/27/16 04:30 36.6 71 111/67 Intake and Output 07/26/16 07/26/16 07/27/16 Cumulative From/Thru 15:00 23:00 07:00 07/26/16 11:03 - 07/27/16 06:12 Intake Total 1750 ml 1234 ml 2984 ml Output Total 450 ml 1250 ml 1700 ml Balance 1300 ml -16 ml 1284 ml Intake Oral 300 ml 500 ml 800 ml IV Total 1450 ml 734 ml 2184 ml Output Urine Total 450 ml 1250 ml 1700 ml Exam General: Alert, oriented, pleasant and cooperative; no acute distress HEENT: Atraumatic; sclera anicteric; mucus membranes moist; HFNC in place and secured Cardiac: Regular rate at approx 70 during exam, regular rhythm Respiratory: Absent lung romano on left; faint right side air flow detected without wheeze or coarse sounds Abdomen: Soft, nontender, nondistended Extremities: No edema Pulses: Radial equal and bilateral; posterior tibialis equal and bilateral Skin: Warm and dry Neuro: CNII-XII grossly intact; facial expressions symmetric; speech without slur Psych: Appropriate mood, affect, and responses to questioning; does appear mildly depressed, but insists she is hopeful; some insight and judgment Lab and Diagnostics Result Diagram: 07/27/16 0730 07/26/16 1115 X-Rays, CTs and MRIs PROCEDURE: CT ANGIO CHEST PULMONARY EMBOLISM ([id number]) FINDINGS: Lungs and pleura: There are postsurgical changes consistent with prior left pneumonectomy with a thick enhancing rind and fluid in the left hemithorax. On the right, there is a new small right pleural effusion. There is increased septal thickening and increased diffuse glass opacities. The findings may represent edema, sequelae of pulmonary venous obstruction, or lymphangitic spread of disease. There are bandlike opacities redemonstrated in the right lung base likely representing scarring. There is a small irregular nodule within the right upper lobe measuring up to 7 mm on series 7 image 17 which is slightly increased in size from the prior study. Mediastinum: Heart size is normal, without pericardial effusion. There is a left chest wall subclavian Port-A-Cath with the tip extending into the right atrium. Thoracic aorta is normal in caliber and enhancement. There are multiple enlarged mediastinal and right hilar lymph nodes redemonstrated including a telesales representative precarinal node measuring up to 1.4 cm in short axis as well as confluent hilar and subcarinal nodes. These are progressively increased compared to the prior studies and are consistent with metastatic disease. Esophagus is normal in caliber, with a small hiatal hernia. IMPRESSION: 1. No evidence of pulmonary embolism in the residual pulmonary arteries. 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 2. Postsurgical changes consistent with prior left pneumonectomy again noted with pleural thickening and fluid opacification of the left hemithorax. 3. Interval increased septal thickening and diffuse groundglass opacities within the right lung may represent pulmonary edema, pulmonary venous obstruction, or lymphangitic spread of disease. 4. New small right pleural effusion with bandlike opacities in the right lung base which may represent scarring, postradiation changes, or pneumonia. 5. Increase in size of a right upper lobe nodule which is nonspecific and may represent metastatic disease. 6. Progressive increase in mediastinal and right hilar lymphadenopathy consistent with baljinder metastases. Dictated by: Curtis Fernandez M.D. on 07/26/2016 at 12:05 . Additional Diagnostics PET Scan Chest 07/04/16: IMPRESSION: 1. Increased FDG avidity involving the left tongue base and left posterior- lateral oropharyngeal wall compared to 03/16/2016. No definite mucosal based mass identified in the region of the increased FDG uptake. Recommend correlation with direct visualization of the oropharyngeal mucosal to exclude the dorsal base mass. 2. Increased FDG uptake in the posterior lateral left chest wall situated between the left fifth-sixth ribs and the left scapula. Finding remains concerning for a metastatic disease. 3. Diffuse, increased FDG uptake involving the right chest wall/right ribs is consistent with metastatic disease. 4. Increased FDG uptake associated with the right diaphragmatic crux and the region of soft tissue thickening suspicious for metastatic disease. 5. Abnormal FDG uptake involving subcarinal and precarinal mediastinal lymph nodes compatible with metastatic lymphadenopathy. The subcarinal mediastinal lymph node is not significant change compared to prior examination. The precarinal mediastinal lymph node is new compared to prior examination and is compatible with progression of disease. 6. There is consolidation in the posterior aspect of the right midlung which demonstrates low level FDG uptake. Finding is unchanged compared prior examination and likely represents post treatment scarring. Dictated by: Kim Tinajero MD, PhD on 07/04/2016 at 15:05 Assessment & Plan PULMONARY PROGRESS NOTE Attending: Dr. Schmidt/ Initial consulting physician: Dr. Claude Mancilla Mrs. Jim Hahn is an extremely pleasant 71 year old woman with an unfortunate and complicated history of NSC lung cancer s/p right pneumonectomy, infiltrating ductal carcinoma of the right breast s/p lumpectomy and chemotherapy and radiation therapy, and left breast carcinoma s/p preservation therapy and external beam radiation, that presented to [facility] via EMS from Urgent Care with increasing dyspnea. She was admitted for evaluation and treatment of acute on chronic hypoxemic respiratory failure requiring HFNC. Pulmonary service was consulted to assist in work-up and treatment of her respiratory symptoms. Please see detailed notes on admission for additional details of complicated history. Assessments - Acute on chronic hypoxemic respiratory failure - May be secondary to inflammatory, infectious, disease progression, medication effects - History of multiple carcinomas - Non small cell lung cancer, s/p left pneumonectomy - Recurrent squamous NSCLC right lung, s/p taxol and carboplatin - Infiltrating ductal carcinoma bilateral breasts, s/p right sided lumpectomy , radiotherapy; s/p left-sided lumpectomy, radiation - Anxiety, chronic - COPD - History of PNA and intubations - History of DVT Plan - Continue - Solu-Medrol 60mg IV q6h - Azithromycin 500mg IV daily - Lasix 20mg daily; cautious diuresis - Continue to titrate O2 needs - Continue other supportive care - Recommend PT eval - Await specialized studies: Legionella, Fungitell - Continue to assess goals of care Her new CT findings may be more indicative of medication effects of nivolumab, such as alveolar hemorrhage, or an acute infectious or inflammatory process. Infectious process less likely, given absence of fever, elevated WBC, and low PCT. At this point, we will treat empirically. Avoidance of mechanical ventilation at this time. PRN bowel.fever/antiemetic GI: H2B DVT: Lovenox 40mg daily Diet: General Code: DNR/DNI Thank you for this most interesting consult, we will happily follow along at this time. We will await pending studies and continually assess for improvements with addition of antimicrobial and steroid therapies. Total pulmonary care time: 90 minutes Pain Evaluation: Adequate Pain Control GI Prophylaxis: H2 tello VTE Prophylaxis: Sub-Q Enoxaparin Resuscitation Status: CPR: Attempt Resuscitation Ester Ceja DO July 27, 2016 08:12
[2016-07-27] MEDS: Vancomycin 1 Gm/200 mL NS Premix IV SCH ×2 (10:32→20:57)
--- NOTE | 2016-07-27 12:38 | DRSVH ---
[facility] [address] [place] [address] Echocardiogram Report Name: LUIZ ZAVALETA CStudy Date: 07/27/2016 Height: 65 in Hospital Exam Location: [facility] Weight: 183 lb Gender: Female BSA: 1.9 m2 : 1945 Age: 71 yrs BP: 111/ 67 mmHg Reason For Study: Hypoxic Respiratory Failure, R/O CHF HR: 78 Ordering Physician: HOSPITALIST [facility] Performed By: Elham Sharp Referring Physician: Dr. Jone Bull Interpretation Summary Left ventricular systolic function is normal. The ejection fraction is estimated to be 55-60%. LVEF has not changed since prior study. There are no obvious focal wall motion abnormalities noted but poor endocardial definition reduces the sensitivity for the detection of such. Spectral Doppler of the mitral valve is reversed, with an E/A wave ratio < 0.8. The right ventricle is mild to moderately dilated. Right ventricular systolic function is borderline reduced. The right ventricular systolic pressure is estimated at 52 mmHg assuming a right atrial pressure of 8 mm Hg. Compared to the prior echo exam, there has been an increase in the severity of pulmonary hypertension. The left atrial size is normal. The right atrium is moderately dilated. There is no significant valvular heart disease. The aortic root is normal size. Procedure: A two-dimensional transthoracic echocardiogram with color flow and Doppler was performed. The study quality was technically difficult. Comparison is made with the echocardiogram of 02/28/2016. Very limited foreshortened apical views. Patient was very sensitive in that region and asked to quit imaging there. The patient was in normal sinus rhythm during the exam. Left Ventricle: The left ventricle is normal in size. There is mild concentric left ventricular hypertrophy. Left ventricular systolic function is normal. The ejection fraction is estimated to be 55-60%. There are no obvious focal wall motion abnormalities noted but poor endocardial definition reduces the sensitivity for the detection of such. Spectral Doppler of the mitral valve is reversed, with an E/A wave ratio < 0.8. Right Ventricle: The right ventricle is mild to moderately dilated. Right ventricular systolic function is borderline reduced. Atria: The left atrial size is normal. The right atrium is moderately dilated. Mitral Valve: The mitral valve leaflets appear mildly thickened, but open well. There is mild mitral annular calcification. There is no mitral valve stenosis. There is mild mitral regurgitation. Aortic Valve: The aortic valve is trileaflet. There is mild aortic valve sclerosis. There is no aortic valve stenosis. No aortic regurgitation is present. Aortic velocities not obtained in this exam. Tricuspid Valve: The tricuspid valve is normal in structure and function. There is mild tricuspid regurgitation. The right ventricular systolic pressure is estimated at 52 mmHg assuming a right atrial pressure of 8 mm Hg. Compared to the prior echo exam, there has been an increase in the severity of pulmonary hypertension. Pulmonic Valve: The pulmonic valve is normal in structure and function. There is trace pulmonic regurgitation. There is no significant valvular heart disease. Great Vessels: The aortic root is normal size. The dimensions of the ascending aorta are normal. The pulmonary artery is normal size. The IVC is dilated (diameter is greater than 2.1 cm) yet it collapses greater than 50% with a sniff. This suggests a right atrial pressure of 8 mm Hg. Pericardium/ Pleura There is an anterior echo-free space consistent with a fat pad. The pericardium appears normal. MMode/2D Measurements & Calculations LVIDd: 4.5 cm RA long axis LVOT diam LVIDs: 2.7 cm LA A2 area: 15.6 cm FS: 40.1 % LA length (vol): 4.5 cm RA area Ao root diam IVSd: 1.00 cm IVC diam: 2.2 cm LVPWd: 1.1 cm : 16.2 cm asc Aorta RA vol: 44.2 mlDiam: 3.2 cm RA : 23.2 mm2 LV peters. diameter/BSA LV sys. diameter/BSA (cm/m^2): 2.4 (cm/m^2): 1.4 Doppler Measurements & Calculations MV E max jameson MV E/A: 0.77 TR max jameson MV V2 mean : 78.8 cm/sec Pulm A Revs Dur : 331.1 cm/sec : 59.9 cm/sec MV A max jameson TR max PG MV mean PG : 102.6 cm/sec MV A dur: 0.13 sec : 43.8 mmHg PA V2 max MV V2 VTI : 63.5 cm/sec PA mean PG MV dec time : 0.81 mmHg : 0.26 sec PA V2 mean Pulm A Revs Dur - MV A : 42.3 cm/sec Dur: -0.02 msec PA pr(Accel) : 49.4 mmHg Reading Physician:KELTON
[2016-07-27] MEDS: Codeine-APAP 30-300 mg Tablet PO PRN (16:17)
[2016-07-27] MEDS: 0.9% Sodium Chloride 250 ML IV SCH (16:22)
--- NOTE | 2016-07-27 16:27 | PCM.PNMED ---
Subjective Date of Service July 27, 2016 Subjective More comfortable. SpO2 96-98% on high flow 0.6 No critical events over noc Denies hemoptysis, fever, chills, Daughter at bedside updated as to impression and plan Exam Vital Signs Vital Sign - Last Date Time Temp Pulse Resp B/P Pulse Ox O2 Delivery O2 Flow Rate FiO2 07/27/16 12:43 68 24 94 Nasal Cannula 30 50 07/27/16 04:30 36.6 111/67 Intake and Output 07/26/16 07/26/16 07/27/16 Cumulative From/Thru 15:00 23:00 07:00 07/26/16 11:03 - 07/27/16 06:12 Intake Total 1750 ml 1234 ml 2984 ml Output Total 450 ml 1250 ml 1700 ml Balance 1300 ml -16 ml 1284 ml Intake Oral 300 ml 500 ml 800 ml IV Total 1450 ml 734 ml 2184 ml Output Urine Total 450 ml 1250 ml 1700 ml Exam Speaks in short sentences but appears comfortable Lungs Good air movement on RT, Absent BS on Lt CV RRR, no m/g/r Abd Soft, normal BTs Ext Warm, No edema Lab and Diagnostics Result Diagram: 07/27/16 0730 07/27/16 0730 X-Rays, CTs and MRIs PROCEDURE: CT ANGIO CHEST PULMONARY EMBOLISM ([id number]) FINDINGS: Lungs and pleura: There are postsurgical changes consistent with prior left pneumonectomy with a thick enhancing rind and fluid in the left hemithorax. On the right, there is a new small right pleural effusion. There is increased septal thickening and increased diffuse glass opacities. The findings may represent edema, sequelae of pulmonary venous obstruction, or lymphangitic spread of disease. There are bandlike opacities redemonstrated in the right lung base likely representing scarring. There is a small irregular nodule within the right upper lobe measuring up to 7 mm on series 7 image 17 which is slightly increased in size from the prior study. Mediastinum: Heart size is normal, without pericardial effusion. There is a left chest wall subclavian Port-A-Cath with the tip extending into the right atrium. Thoracic aorta is normal in caliber and enhancement. There are multiple enlarged mediastinal and right hilar lymph nodes redemonstrated including a security representative precarinal node measuring up to 1.4 cm in short axis as well as confluent hilar and subcarinal nodes. These are progressively increased compared to the prior studies and are consistent with metastatic disease. Esophagus is normal in caliber, with a small hiatal hernia. IMPRESSION: 1. No evidence of pulmonary embolism in the residual pulmonary arteries. 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 2. Postsurgical changes consistent with prior left pneumonectomy again noted with pleural thickening and fluid opacification of the left hemithorax. 3. Interval increased septal thickening and diffuse groundglass opacities within the right lung may represent pulmonary edema, pulmonary venous obstruction, or lymphangitic spread of disease. 4. New small right pleural effusion with bandlike opacities in the right lung base which may represent scarring, postradiation changes, or pneumonia. 5. Increase in size of a right upper lobe nodule which is nonspecific and may represent metastatic disease. 6. Progressive increase in mediastinal and right hilar lymphadenopathy consistent with baljinder metastases. Dictated by: Curtis Fernandez M.D. on 07/26/2016 at 12:05 . Additional Diagnostics PET Scan Chest 07/04/16: IMPRESSION: 1. Increased FDG avidity involving the left tongue base and left posterior- lateral oropharyngeal wall compared to 03/16/2016. No definite mucosal based mass identified in the region of the increased FDG uptake. Recommend correlation with direct visualization of the oropharyngeal mucosal to exclude the dorsal base mass. 2. Increased FDG uptake in the posterior lateral left chest wall situated between the left fifth-sixth ribs and the left scapula. Finding remains concerning for a metastatic disease. 3. Diffuse, increased FDG uptake involving the right chest wall/right ribs is consistent with metastatic disease. 4. Increased FDG uptake associated with the right diaphragmatic crux and the region of soft tissue thickening suspicious for metastatic disease. 5. Abnormal FDG uptake involving subcarinal and precarinal mediastinal lymph nodes compatible with metastatic lymphadenopathy. The subcarinal mediastinal lymph node is not significant change compared to prior examination. The precarinal mediastinal lymph node is new compared to prior examination and is compatible with progression of disease. 6. There is consolidation in the posterior aspect of the right midlung which demonstrates low level FDG uptake. Finding is unchanged compared prior examination and likely represents post treatment scarring. 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 lung , new in comparison to 07/10 Main concern is that this represents alveolitis due to check point inhibitor. Can't definitively r/o infection but seems less likely as she is afebrile and procalcitonin is normal 2 H/O Breast CA , bilateral, s/p lumpectomy and XRT, now on letrozole. 3 Anxiety disorder REC Continue current steroid dose for one week and begin slow taper over 3 weeks if infiltrates resolve and oxygenation improves. If she deteriorates on current treatment, should transition to palliative strategy. Change empiric macrolide to PO clarithro as it is preferred as an immunomodulator in this type of situation. GI Prophylaxis: H2 tello VTE Prophylaxis: Sub-Q Enoxaparin Resuscitation Status: CPR: Attempt Resuscitation Tino Schmidt MD July 27, 2016 16:26
--- NOTE | 2016-07-27 18:06 | PCM.PNMED ---
Subjective Date of Service July 27, 2016 Subjective Jim Hahn is a 71-year-old woman with history of breast and lung cancer with underlying COPD status post left pneumonectomy presents with acute on chronic respiratory failure with hypoxia. Hospital day #2. Overnight: No acute events. Today: Patient states that she is feeling better and her breathing has improved a bit. She still feels quite weak and quite tired. She denies any fever or chills. The remainder of the review of systems is negative except as noted above. Exam Vital Signs Vital Sign - Last Date Time Temp Pulse Resp B/P Pulse Ox O2 Delivery O2 Flow Rate FiO2 07/27/16 12:43 68 24 94 Nasal Cannula 30 50 07/27/16 04:30 36.6 111/67 Intake and Output 07/26/16 07/26/16 07/27/16 Cumulative From/Thru 15:00 23:00 07:00 07/26/16 11:03 - 07/27/16 06:12 Intake Total 1750 ml 1234 ml 2984 ml Output Total 450 ml 1250 ml 1700 ml Balance 1300 ml -16 ml 1284 ml Intake Oral 300 ml 500 ml 800 ml IV Total 1450 ml 734 ml 2184 ml Output Urine Total 450 ml 1250 ml 1700 ml Exam Constitutional: Alert, able to talk to limited extent, mild respiratory distress ; vital signs noted Eyes: sclerae anicteric, no conjunctival pallor, ENMT: ears, nose atraumatic; oral mucosa dry Neck: supple, JVD absent, no nodules Chest: symmetric, no pain or lesions Resp: auscultation generally clear on right side, dull on the left, no wheezes, rales; unable to reposition to assess dullness Cardiac: S1, S2, regular, no murmur Abdomen: bowel sounds present, nontender, no organomegaly Musculoskeletal: no joints with acute erythema, swelling Skin and soft tissues: no rash; no pitting edema Peripheral pulses: normal at wrist, feet Lymphatic: no adenopathy cervical Neurological: Cranial Nerves - face symmetric Motor - normal tone Coordination - normal movement, no tremor Sensory - light touch reduced and feet Psych & Mental Status - oriented IVs and Medications Medications Reviewed: Medications were reviewed in detail Lab and Diagnostics Result Diagram: 07/27/16 0730 07/27/16 0730 X-Rays, CTs and MRIs PROCEDURE: CT ANGIO CHEST PULMONARY EMBOLISM ([id number]) FINDINGS: Lungs and pleura: There are postsurgical changes consistent with prior left pneumonectomy with a thick enhancing rind and fluid in the left hemithorax. On the right, there is a new small right pleural effusion. There is increased septal thickening and increased diffuse glass opacities. The findings may represent edema, sequelae of pulmonary venous obstruction, or lymphangitic spread of disease. There are bandlike opacities redemonstrated in the right lung base likely representing scarring. There is a small irregular nodule within the right upper lobe measuring up to 7 mm on series 7 image 17 which is slightly increased in size from the prior study. Mediastinum: Heart size is normal, without pericardial effusion. There is a left chest wall subclavian Port-A-Cath with the tip extending into the right atrium. Thoracic aorta is normal in caliber and enhancement. There are multiple enlarged mediastinal and right hilar lymph nodes redemonstrated including a regional sales representative precarinal node measuring up to 1.4 cm in short axis as well as confluent hilar and subcarinal nodes. These are progressively increased compared to the prior studies and are consistent with metastatic disease. Esophagus is normal in caliber, with a small hiatal hernia. IMPRESSION: 1. No evidence of pulmonary embolism in the residual pulmonary arteries. 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 2. Postsurgical changes consistent with prior left pneumonectomy again noted with pleural thickening and fluid opacification of the left hemithorax. 3. Interval increased septal thickening and diffuse groundglass opacities within the right lung may represent pulmonary edema, pulmonary venous obstruction, or lymphangitic spread of disease. 4. New small right pleural effusion with bandlike opacities in the right lung base which may represent scarring, postradiation changes, or pneumonia. 5. Increase in size of a right upper lobe nodule which is nonspecific and may represent metastatic disease. 6. Progressive increase in mediastinal and right hilar lymphadenopathy consistent with baljinder metastases. Dictated by: Curtis Fernandez M.D. on 07/26/2016 at 12:05 . Additional Diagnostics PET Scan Chest 07/04/16: IMPRESSION: 1. Increased FDG avidity involving the left tongue base and left posterior- lateral oropharyngeal wall compared to 03/16/2016. No definite mucosal based mass identified in the region of the increased FDG uptake. Recommend correlation with direct visualization of the oropharyngeal mucosal to exclude the dorsal base mass. 2. Increased FDG uptake in the posterior lateral left chest wall situated between the left fifth-sixth ribs and the left scapula. Finding remains concerning for a metastatic disease. 3. Diffuse, increased FDG uptake involving the right chest wall/right ribs is consistent with metastatic disease. 4. Increased FDG uptake associated with the right diaphragmatic crux and the region of soft tissue thickening suspicious for metastatic disease. 5. Abnormal FDG uptake involving subcarinal and precarinal mediastinal lymph nodes compatible with metastatic lymphadenopathy. The subcarinal mediastinal lymph node is not significant change compared to prior examination. The precarinal mediastinal lymph node is new compared to prior examination and is compatible with progression of disease. 6. There is consolidation in the posterior aspect of the right midlung which demonstrates low level FDG uptake. Finding is unchanged compared prior examination and likely represents post treatment scarring. Dictated by: Kim Tinajero MD, PhD on 07/04/2016 at 15:05 Assessment & Plan Jim Hahn is a 71-year-old woman with history of breast and lung cancer with underlying COPD status post left pneumonectomy presents with acute on chronic respiratory failure with hypoxia. Hospital day #2. Acute on chronic respiratory failure with hypoxia. History suggests progressive decline. Current chest CT suggests progression of interstitial process as well as increased adenopathy. Pulmonary embolism is been ruled out. There is no hypercarbia and ventilation seems adequate. - High flow oxygen support - Bronchodilators as needed - Pulmonology consult - Patient is DO NOT INTUBATE Interstitial pulmonary disease, acute. Differential seems likely inflammatory or fibrotic process, atypical infection, cancer progression, lymphangitic neoplasm. Unlikely to be heart failure or acute bacterial infection, but these would be treatable. - Continue high-dose glucocorticoid - Broad-spectrum antibiotic Elevated BNP, acute. No history of cardiac disease. Acute diastolic heart failure related to hypoxic pulmonary process seems plausible. - Echocardiogram - Trial of Lasix - no IV fluids at present Metabolic acidosis, acute. AG is 17 at admission. Lactate only slightly elevated. Seems likely to be tissue hypoxia related. - Monitor metabolic status, may need to liberalize hydration if she develops prerenal azotemia. VTE prophylaxis - Lovenox Disposition: The patient can be downgraded from ICU/IMCU status in the next few days. GI Prophylaxis: H2 tello VTE Prophylaxis: Sub-Q Enoxaparin Resuscitation Status: CPR: Attempt Resuscitation Adeline Evans DO July 27, 2016 18:02 Kevin Mancilla MD July 28, 2016 07:21
[2016-07-28] VITALS (11 sets, daily range): BP systolic 107–129; BP diastolic 54–71; PULSE 67–82; RESP 19–25; O2SAT 93–97
[2016-07-28] MEDS: Sodium Chloride LOK Flush 10 mL Syringe IVFLUSH SCH ×4 (00:30→19:43)
[2016-07-28] MEDS: Meropenem 1 Gm/100 mL NS Minibag Plus IV SCH ×4 (00:38→07:56)
[2016-07-28] MEDS: MethylprednisoLONE Sodium Succinate 62.5 mg/mL 2 mL Inj IVPUSH SCH ×4 (02:39→19:43)
[2016-07-28] MEDS ORDERED: Vancomycin Serum Trough XX ONE (07:30)
[2016-07-28] MEDS: Vitamin B Complex/Vit C Tablet PO SCH (07:55)
[2016-07-28] MEDS: buPROPion XL 150 mg ER24 Tablet PO SCH (07:55)
[2016-07-28] MEDS: Furosemide 10 mg/mL 2 mL Inj IVPUSH SCH ×2 (08:03→17:18)
--- NOTE | 2016-07-28 10:24 | PROG NOTE ---
[address] [address] PROGRESS NOTE PATIENT: LUIZ ZAVALETA : 1945 MR#: [id number] ADMIT: 07/26/2016 JOB ID: [id number] DATE: 07/27/2016 HOSPITAL ROUNDS: This is a 71-year-old woman who was hospitalized on July 26 for acute on chronic respiratory failure with history of lung and breast cancer. She was seen by Dr. Schmidt of pulmonary who felt that the ground glass infiltrates that had developed since July 10 could well be related to check point inhibitor therapy with the differential diagnosis also including infection, fluid overload and much less likely lymphangitic spread of tumor. Unfortunately, the CT scan did show evidence of tumor progression in lymph nodes, but not in a way that would have caused her respiratory failure. She is being treated with steroids for that as well as antibiotics and diuresis. She elected not to have intubation should she deteriorate and she has actually stabilized since admission. An echocardiogram performed today showed an EF of 55- 60% with an increase in the severity of pulmonary hypertension and no valvular heart disease. No evidence of a pericardial effusion. SUBJECTIVE: The patient is sitting comfortably in bed with nasal O2; she states that her breathing is much better; some of her acute respiratory failure is associated with severe panic and that has improved. She is eating and states she has a good appetite. She has no pain and has been able to stand up according to her report. OBJECTIVE: Her vital signs show a temperature of 37.0, pulse 79, respiratory rate 23, blood pressure 110/61, pulse ox 98%, on high-flow supplemental oxygen 80%. This is up from 50% earlier today. I and O show a weight of 62.73 kg. intake total was 1750, output total was 450 as of 2359. P.O. intake was small at 300 mL, IV 1450. Head and neck: Nasal tube in place. Pupils equal, round, reactive without icterus. Oral mucosa is pink and moist without thrush or lesions. Respiratory: Clear to auscultation anteriorly and laterally. Cardiac: Rhythm is regular without murmur or peripheral edema. Abdomen: Soft, nontender. Skin: Shows no new lesions. LABORATORY VALUES: The white blood cell count is 11.3 with 76.2 segs, hemoglobin 15.1, hematocrit 44.0, platelets 227. BUN and creatinine are 13 and 0.74. Electrolytes normal. Glucose 134, calcium 9.1. PROBNP was 1315. ASSESSMENT/RECOMMENDATIONS: 1. Acute on chronic respiratory failure. I appreciate Dr. Evans's note indicating the management which has thus far resulted in improvement in the patient's condition and probably down grading from ICU status including high dose glucocorticoid, broad spectrum antibiotic, bronchodilators. Patient has been placed on a trial of Lasix as well. Dr. Evans indicated a metabolic acidosis probably related to tissue hypoxia. 2. Lung cancer. I have counseled the patient and her that this is not the immediate threat to her survival but that we will have to discuss at the appropriate time with her. Further management of her lung cancer should include active treatment or supportive care.
--- NOTE | 2016-07-28 12:18 | PCM.PNMED ---
Subjective Date of Service July 28, 2016 Subjective Resting comfortably on high flow 0.6 with SpO2 97% SOB improved, chest pain is stable No cough No critical events over noc Exam Vital Signs Vital Sign - Last Date Time Temp Pulse Resp B/P Pulse Ox O2 Delivery O2 Flow Rate FiO2 07/28/16 12:00 36.9 68 20 107/56 94 HI FLOW 07/28/16 10:10 30 50 Intake and Output 07/27/16 07/27/16 07/28/16 Cumulative From/Thru 15:00 23:00 07:00 07/26/16 11:03 - 07/28/16 06:08 Intake Total 1068 ml 700 ml 4752 ml Output Total 1500 ml 300 ml 3500 ml Balance -432 ml 400 ml 1252 ml Intake Oral 540 ml 200 ml 1540 ml IV Total 528 ml 500 ml 3212 ml Output Urine Total 1500 ml 300 ml 3500 ml # Voids 4 1 5 # Bowel Movements 0 0 Exam Thin woman wearing high flow cannula, Speaks in short sentences Lungs Good air movement over Rt lung, Absent BS on Lt CV RRR with extrasystoles, no m/g/r Ext Warm, no edema Lab and Diagnostics Result Diagram: 07/27/16 0730 07/28/16 0430 X-Rays, CTs and MRIs PROCEDURE: CT ANGIO CHEST PULMONARY EMBOLISM ([id number]) FINDINGS: Lungs and pleura: There are postsurgical changes consistent with prior left pneumonectomy with a thick enhancing rind and fluid in the left hemithorax. On the right, there is a new small right pleural effusion. There is increased septal thickening and increased diffuse glass opacities. The findings may represent edema, sequelae of pulmonary venous obstruction, or lymphangitic spread of disease. There are bandlike opacities redemonstrated in the right lung base likely representing scarring. There is a small irregular nodule within the right upper lobe measuring up to 7 mm on series 7 image 17 which is slightly increased in size from the prior study. Mediastinum: Heart size is normal, without pericardial effusion. There is a left chest wall subclavian Port-A-Cath with the tip extending into the right atrium. Thoracic aorta is normal in caliber and enhancement. There are multiple enlarged mediastinal and right hilar lymph nodes redemonstrated including a training representative precarinal node measuring up to 1.4 cm in short axis as well as confluent hilar and subcarinal nodes. These are progressively increased compared to the prior studies and are consistent with metastatic disease. Esophagus is normal in caliber, with a small hiatal hernia. IMPRESSION: 1. No evidence of pulmonary embolism in the residual pulmonary arteries. 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 2. Postsurgical changes consistent with prior left pneumonectomy again noted with pleural thickening and fluid opacification of the left hemithorax. 3. Interval increased septal thickening and diffuse groundglass opacities within the right lung may represent pulmonary edema, pulmonary venous obstruction, or lymphangitic spread of disease. 4. New small right pleural effusion with bandlike opacities in the right lung base which may represent scarring, postradiation changes, or pneumonia. 5. Increase in size of a right upper lobe nodule which is nonspecific and may represent metastatic disease. 6. Progressive increase in mediastinal and right hilar lymphadenopathy consistent with baljinder metastases. Dictated by: Curtis Fernandez M.D. on 07/26/2016 at 12:05 . Additional Diagnostics PET Scan Chest 07/04/16: IMPRESSION: 1. Increased FDG avidity involving the left tongue base and left posterior- lateral oropharyngeal wall compared to 03/16/2016. No definite mucosal based mass identified in the region of the increased FDG uptake. Recommend correlation with direct visualization of the oropharyngeal mucosal to exclude the dorsal base mass. 2. Increased FDG uptake in the posterior lateral left chest wall situated between the left fifth-sixth ribs and the left scapula. Finding remains concerning for a metastatic disease. 3. Diffuse, increased FDG uptake involving the right chest wall/right ribs is consistent with metastatic disease. 4. Increased FDG uptake associated with the right diaphragmatic crux and the region of soft tissue thickening suspicious for metastatic disease. 5. Abnormal FDG uptake involving subcarinal and precarinal mediastinal lymph nodes compatible with metastatic lymphadenopathy. The subcarinal mediastinal lymph node is not significant change compared to prior examination. The precarinal mediastinal lymph node is new compared to prior examination and is compatible with progression of disease. 6. There is consolidation in the posterior aspect of the right midlung which demonstrates low level FDG uptake. Finding is unchanged compared prior examination and likely represents post treatment scarring. 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 lung , new in comparison to 07/10 Main concern is that this represents alveolitis due to check point inhibitor. Can't definitively r/o infection but seems less likely as she is afebrile and procalcitonin is normal 2 H/O Breast CA , bilateral, s/p lumpectomy and XRT, now on letrozole. 3 Anxiety disorder REC Continue current steroid dose for one week and begin slow taper over 3 weeks if infiltrates resolve and oxygenation improves. While dependent on high flow, she probably can't be discharged but we can reconsider if she tolerates NC O2 which she already has at home. If she deteriorates on current treatment, should transition to palliative strategy. Change empiric macrolide to PO clarithro as it is preferred as an immunomodulator in this type of situation. GI Prophylaxis: H2 tello VTE Prophylaxis: Sub-Q Enoxaparin Resuscitation Status: CPR: Attempt Resuscitation Tino Schmidt MD July 28, 2016 12:17
--- NOTE | 2016-07-28 14:48 | PCM.PNMED ---
Subjective Date of Service July 28, 2016 Subjective Jim Zavaleta is a 71-year-old woman with history of breast and lung cancer with underlying COPD status post left pneumonectomy presents with acute on chronic respiratory failure with hypoxia with apparent new onset interstitial lung disease. Hospital day #3. Patient states that she is feeling better and her breathing has improved a bit, but still markedly dyspneic and hypoxic with minimal ADLs. She still feels quite weak and quite tired. She denies any fever or chills. No cough. Exam Vital Signs Vital Sign - Last Date Time Temp Pulse Resp B/P Pulse Ox O2 Delivery O2 Flow Rate FiO2 07/28/16 12:00 36.9 68 20 107/56 94 HI FLOW 07/28/16 10:10 30 50 Intake and Output 07/27/16 07/27/16 07/28/16 Cumulative From/Thru 15:00 23:00 07:00 07/26/16 11:03 - 07/28/16 06:08 Intake Total 1068 ml 700 ml 4752 ml Output Total 1500 ml 300 ml 3500 ml Balance -432 ml 400 ml 1252 ml Intake Oral 540 ml 200 ml 1540 ml IV Total 528 ml 500 ml 3212 ml Output Urine Total 1500 ml 300 ml 3500 ml # Voids 4 1 5 # Bowel Movements 0 0 Exam General: Anxious appearing, hyperkinetic but in no acute distress HEENT: sclerae anicteric, oral mucosa moist Neck: Supple, no JVD Chest: Right lung is generally clear to auscultation; left lung absent Cardiac: S1S2, regular Abdomen: BS normal, non-tender Extremities: No edema Neuro: A&O, cranial nerves symmetric, motor strength 5/5, coordination normal, moderate tremor IVs and Medications Medications Reviewed: Medications were reviewed in detail Lab and Diagnostics Result Diagram: 07/27/16 0730 07/28/16 0430 Microbiology Viral PCR panel negative; MRSA screen negative; blood cultures negative X-Rays, CTs and MRIs PROCEDURE: CT ANGIO CHEST PULMONARY EMBOLISM ([id number]) FINDINGS: Lungs and pleura: There are postsurgical changes consistent with prior left pneumonectomy with a thick enhancing rind and fluid in the left hemithorax. On the right, there is a new small right pleural effusion. There is increased septal thickening and increased diffuse glass opacities. The findings may represent edema, sequelae of pulmonary venous obstruction, or lymphangitic spread of disease. There are bandlike opacities redemonstrated in the right lung base likely representing scarring. There is a small irregular nodule within the right upper lobe measuring up to 7 mm on series 7 image 17 which is slightly increased in size from the prior study. Mediastinum: Heart size is normal, without pericardial effusion. There is a left chest wall subclavian Port-A-Cath with the tip extending into the right atrium. Thoracic aorta is normal in caliber and enhancement. There are multiple enlarged mediastinal and right hilar lymph nodes redemonstrated including a patient representative precarinal node measuring up to 1.4 cm in short axis as well as confluent hilar and subcarinal nodes. These are progressively increased compared to the prior studies and are consistent with metastatic disease. Esophagus is normal in caliber, with a small hiatal hernia. IMPRESSION: 1. No evidence of pulmonary embolism in the residual pulmonary arteries. 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 2. Postsurgical changes consistent with prior left pneumonectomy again noted with pleural thickening and fluid opacification of the left hemithorax. 3. Interval increased septal thickening and diffuse groundglass opacities within the right lung may represent pulmonary edema, pulmonary venous obstruction, or lymphangitic spread of disease. 4. New small right pleural effusion with bandlike opacities in the right lung base which may represent scarring, postradiation changes, or pneumonia. 5. Increase in size of a right upper lobe nodule which is nonspecific and may represent metastatic disease. 6. Progressive increase in mediastinal and right hilar lymphadenopathy consistent with baljinder metastases. Dictated by: Curtis Fernandez M.D. on 07/26/2016 at 12:05 . Cardiac Echo Impressions Echocardiogram Report Name: JIM ZAVALETA Study Date: 07/27/2016 Interpretation Summary Left ventricular systolic function is normal. The ejection fraction is estimated to be 55-60%. LVEF has not changed since prior study. There are no obvious focal wall motion abnormalities noted but poor endocardial definition reduces the sensitivity for the detection of such. Spectral Doppler of the mitral valve is reversed, with an E/A wave ratio < 0.8. The right ventricle is mild to moderately dilated. Right ventricular systolic function is borderline reduced. The right ventricular systolic pressure is estimated at 52 mmHg assuming a right atrial pressure of 8 mm Hg. Compared to the prior echo exam, there has been an increase in the severity of pulmonary hypertension. The left atrial size is normal. The right atrium is moderately dilated. There is no significant valvular heart disease. The aortic root is normal size. Additional Diagnostics PET Scan Chest 07/04/16: IMPRESSION: 1. Increased FDG avidity involving the left tongue base and left posterior- lateral oropharyngeal wall compared to 03/16/2016. No definite mucosal based mass identified in the region of the increased FDG uptake. Recommend correlation with direct visualization of the oropharyngeal mucosal to exclude the dorsal base mass. 2. Increased FDG uptake in the posterior lateral left chest wall situated between the left fifth-sixth ribs and the left scapula. Finding remains concerning for a metastatic disease. 3. Diffuse, increased FDG uptake involving the right chest wall/right ribs is consistent with metastatic disease. 4. Increased FDG uptake associated with the right diaphragmatic crux and the region of soft tissue thickening suspicious for metastatic disease. 5. Abnormal FDG uptake involving subcarinal and precarinal mediastinal lymph nodes compatible with metastatic lymphadenopathy. The subcarinal mediastinal lymph node is not significant change compared to prior examination. The precarinal mediastinal lymph node is new compared to prior examination and is compatible with progression of disease. 6. There is consolidation in the posterior aspect of the right midlung which demonstrates low level FDG uptake. Finding is unchanged compared prior examination and likely represents post treatment scarring. Dictated by: Kim Tinajero MD, PhD on 07/04/2016 at 15:05 Assessment & Plan # Acute on chronic respiratory failure with hypoxia. History suggests progressive decline. Current chest CT suggests progression of interstitial process as well as increased adenopathy. Pulmonary embolism is been ruled out. There is no hypercarbia and ventilation seems adequate. - High flow oxygen support - Bronchodilators as needed, although no evidence for bronchospasm - Pulmonology consult is following # Interstitial pulmonary disease, acute. Differential seems likely inflammatory or fibrotic process, atypical infection, cancer progression, lymphangitic neoplasm. Unlikely to be heart failure or acute bacterial infection, but these would be treatable. - Continue high-dose glucocorticoid - Discontinue Broad-spectrum antibiotics - continue clarithromycin day #2 # Elevated BNP, acute. No history of cardiac disease. Acute right sided heart failure related to hypoxic pulmonary process seems plausible. - Lasix 20 mg twice a day he is currently maintaining neutral fluid status - will continue but otherwise avoid significant dehydration -Minimize IV fluids at present - encourage by mouth intake # Metabolic acidosis, acute. AG is 17 at admission. Lactate only slightly elevated. Seems likely to be tissue hypoxia related. - Resolved VTE prophylaxis - Lovenox Disposition: The patient can be downgraded from CCU status in the next few days. We will attempt to wean oxygen as tolerated in the next few days. If her oxygenation needs exceed the capacity of home oxygen support then alternated venues for discharge meds be pursued. CODE STATUS is DNR/DNI GI Prophylaxis: H2 tello VTE Prophylaxis: Sub-Q Enoxaparin Resuscitation Status: CPR: Attempt Resuscitation Time spent 35 minutes Kevin Mancilla MD July 28, 2016 14:48
[2016-07-28] MEDS: 0.9% Sodium Chloride 250 ML IV SCH (16:22)
[2016-07-28] MEDS: Codeine-APAP 30-300 mg Tablet PO PRN (19:44)
[2016-07-29] VITALS (13 sets, daily range): BP systolic 119–136; BP diastolic 62–73; PULSE 58–81; RESP 17–28; O2SAT 92–98
[2016-07-29] MEDS: MethylprednisoLONE Sodium Succinate 62.5 mg/mL 2 mL Inj IVPUSH SCH ×4 (02:39→20:48)
[2016-07-29 04:32] LABS: BASOPHILS % (AUTO) 0 % (0-3); EOSINOPHILS % (AUTO) 0 % (0-5); MONOCYTES % (AUTO) 2.8 % (4-12); Mean Corpuscular Hemoglobin 32.7 pg (27.0-35.0); Mean Corpuscular Volume 98.3 fL (81-100); NEUTROPHILS % (AUTO) 92.1 % (40-74); Platelet Count 202 bil/L (150-400)
[2016-07-29] MEDS: Sodium Chloride LOK Flush 10 mL Syringe IVFLUSH SCH ×2 (08:30→17:10)
[2016-07-29] MEDS: Furosemide 10 mg/mL 2 mL Inj IVPUSH SCH ×2 (09:33→17:10)
[2016-07-29] MEDS: buPROPion XL 150 mg ER24 Tablet PO SCH (09:34)
[2016-07-29] MEDS: Vitamin B Complex/Vit C Tablet PO SCH (09:34)
--- NOTE | 2016-07-29 10:26 | DRSVH ---
PROCEDURE: X-RAY CHEST ONE VIEW, PORTABLE ([id number]) INDICATIONS: pneumonitis TECHNIQUE: One view of the chest was acquired. COMPARISON: [facility], CR, XR CHEST 1VW (PORTABLE), 07/26/2016, 11:17. FINDINGS: Surgical changes and devices: Left-sided portacatheter tip in the mid SVC. Bilateral chest wall posto perative change. Lungs and pleura: Complete left hemithorax opacification with leftward shift of the mediastinum consi stent with previous pneumonectomy. Interstitial right basilar pulmonary opacities. Right midlung sca rring or postoperative change. Hyperinflation consistent with COPD. Mediastinum: Mediastinal contours are leftward shifted and obscured but grossly normal. Heart size is normal. Vascular calcifications. Bones and chest wall: No suspicious bony lesions. Overlying soft tissues appear unremarkable. IMPRESSION: 1. Right basilar interstitial pulmonary opacities better seen on the recent CT remain indeterminate f or edema, infection, or lymphangitic spread of disease superimposed on mid lung scarring. 2. Left pneumonectomy. 3. Left-sided portacatheter. Dictated by: Dao Arriola M.D. on 07/29/2016 at 10:22 Approved by: Dao Arriola M.D. on 07/29/2016 at 10:25
[2016-07-29] MEDS: 0.9% Sodium Chloride 250 ML IV SCH (11:04)
--- NOTE | 2016-07-29 15:17 | PCM.PNMED ---
Subjective Date of Service July 29, 2016 Subjective Jim Zavaleta is a 71-year-old woman with history of breast and lung cancer with underlying COPD status post left pneumonectomy presents with acute on chronic respiratory failure with hypoxia with apparent new onset interstitial lung disease. Hospital day # 4. Patient states that she is feeling about the same as yesterday, but still markedly dyspneic and hypoxic with minimal ADLs. She still feels quite weak and quite tired. She denies any fever or chills. No cough. Exam Vital Signs Vital Sign - Last Date Time Temp Pulse Resp B/P Pulse Ox O2 Delivery O2 Flow Rate FiO2 07/29/16 11:36 36.7 58 21 130/71 97 High flow 07/29/16 07:58 30 50 Intake and Output 07/28/16 07/28/16 07/29/16 Cumulative From/Thru 15:00 23:00 07:00 07/26/16 11:03 - 07/29/16 06:04 Intake Total 800 ml 710 ml 6262 ml Output Total 1800 ml 450 ml 5750 ml Balance -1000 ml 260 ml 512 ml Intake Oral 800 ml 400 ml 2740 ml IV Total 310 ml 3522 ml Tube Irrigant 0 ml 0 ml Output Urine Total 1800 ml 450 ml 5750 ml # Voids 1 6 # Bowel Movements 1 0 1 Exam General: Anxious appearing, but in no acute distress HEENT: sclerae anicteric, oral mucosa moist Chest: Right lung is generally clear to auscultation with few lateral dependent crackles; left lung absent Cardiac: S1S2, regular Abdomen: BS normal, non-tender Extremities: No edema Neuro: A&O, cranial nerves symmetric, motor strength 5/5, mild tremor IVs and Medications Medications Reviewed: Medications were reviewed in detail Lab and Diagnostics Result Diagram: 07/29/1641107/29/16411 Microbiology Viral PCR panel negative; MRSA screen negative; blood cultures negative X-Rays, CTs and MRIs PROCEDURE: CT ANGIO CHEST PULMONARY EMBOLISM ([id number]) FINDINGS: Lungs and pleura: There are postsurgical changes consistent with prior left pneumonectomy with a thick enhancing rind and fluid in the left hemithorax. On the right, there is a new small right pleural effusion. There is increased septal thickening and increased diffuse glass opacities. The findings may represent edema, sequelae of pulmonary venous obstruction, or lymphangitic spread of disease. There are bandlike opacities redemonstrated in the right lung base likely representing scarring. There is a small irregular nodule within the right upper lobe measuring up to 7 mm on series 7 image 17 which is slightly increased in size from the prior study. Mediastinum: Heart size is normal, without pericardial effusion. There is a left chest wall subclavian Port-A-Cath with the tip extending into the right atrium. Thoracic aorta is normal in caliber and enhancement. There are multiple enlarged mediastinal and right hilar lymph nodes redemonstrated including a solar sales representative precarinal node measuring up to 1.4 cm in short axis as well as confluent hilar and subcarinal nodes. These are progressively increased compared to the prior studies and are consistent with metastatic disease. Esophagus is normal in caliber, with a small hiatal hernia. IMPRESSION: 1. No evidence of pulmonary embolism in the residual pulmonary arteries. 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 2. Postsurgical changes consistent with prior left pneumonectomy again noted with pleural thickening and fluid opacification of the left hemithorax. 3. Interval increased septal thickening and diffuse groundglass opacities within the right lung may represent pulmonary edema, pulmonary venous obstruction, or lymphangitic spread of disease. 4. New small right pleural effusion with bandlike opacities in the right lung base which may represent scarring, postradiation changes, or pneumonia. 5. Increase in size of a right upper lobe nodule which is nonspecific and may represent metastatic disease. 6. Progressive increase in mediastinal and right hilar lymphadenopathy consistent with baljinder metastases. Dictated by: Curtis Fernandez M.D. on 07/26/2016 at 12:05 . Cardiac Echo Impressions Echocardiogram Report Name: JIM ZAVALETA Study Date: 07/27/2016 Interpretation Summary Left ventricular systolic function is normal. The ejection fraction is estimated to be 55-60%. LVEF has not changed since prior study. There are no obvious focal wall motion abnormalities noted but poor endocardial definition reduces the sensitivity for the detection of such. Spectral Doppler of the mitral valve is reversed, with an E/A wave ratio < 0.8. The right ventricle is mild to moderately dilated. Right ventricular systolic function is borderline reduced. The right ventricular systolic pressure is estimated at 52 mmHg assuming a right atrial pressure of 8 mm Hg. Compared to the prior echo exam, there has been an increase in the severity of pulmonary hypertension. The left atrial size is normal. The right atrium is moderately dilated. There is no significant valvular heart disease. The aortic root is normal size. Additional Diagnostics PET Scan Chest 07/04/16: IMPRESSION: 1. Increased FDG avidity involving the left tongue base and left posterior- lateral oropharyngeal wall compared to 03/16/2016. No definite mucosal based mass identified in the region of the increased FDG uptake. Recommend correlation with direct visualization of the oropharyngeal mucosal to exclude the dorsal base mass. 2. Increased FDG uptake in the posterior lateral left chest wall situated between the left fifth-sixth ribs and the left scapula. Finding remains concerning for a metastatic disease. 3. Diffuse, increased FDG uptake involving the right chest wall/right ribs is consistent with metastatic disease. 4. Increased FDG uptake associated with the right diaphragmatic crux and the region of soft tissue thickening suspicious for metastatic disease. 5. Abnormal FDG uptake involving subcarinal and precarinal mediastinal lymph nodes compatible with metastatic lymphadenopathy. The subcarinal mediastinal lymph node is not significant change compared to prior examination. The precarinal mediastinal lymph node is new compared to prior examination and is compatible with progression of disease. 6. There is consolidation in the posterior aspect of the right midlung which demonstrates low level FDG uptake. Finding is unchanged compared prior examination and likely represents post treatment scarring. Dictated by: Kim Tinajero MD, PhD on 07/04/2016 at 15:05 Assessment & Plan # Acute on chronic respiratory failure with hypoxia. History suggests progressive decline. Current chest CT suggests progression of interstitial process as well as increased adenopathy. Pulmonary embolism is been ruled out. There is no hypercarbia and ventilation seems adequate. - High flow oxygen support; taper as tolerated - We did explore options for out of hospital respiratory support with depending on how much we can taper up to - Continue high-dose glucocorticoid - Pulmonology consult is following; will guide corticosteroid dosing # Interstitial pulmonary disease, acute. Differential seems likely inflammatory or fibrotic process, atypical infection, cancer progression, lymphangitic neoplasm. Unlikely to be heart failure or acute bacterial infection, but these would be treatable. - Continue high-dose glucocorticoid - Discontinue Broad-spectrum antibiotics - continue clarithromycin day # 3 # Elevated BNP, acute. No history of cardiac disease. Acute right sided heart failure related to hypoxic pulmonary process seems plausible. - Lasix 20 mg twice a day he is currently maintaining neutral fluid status - Consider stopping Lasix in 1-2 days - Minimize IV fluids at present - encourage by mouth intake # Metabolic acidosis, acute. AG is 17 at admission. Lactate only slightly elevated. Seems likely to be tissue hypoxia related. - Resolved VTE prophylaxis - Lovenox Disposition: The patient can be downgraded from CCU status in the next few days. We will attempt to wean oxygen as tolerated in the next few days. If her oxygenation needs exceed the capacity of home oxygen support then alternated venues for discharge meds be pursued. CODE STATUS is DNR/DNI GI Prophylaxis: H2 tello VTE Prophylaxis: Sub-Q Enoxaparin Resuscitation Status: CPR: Attempt Resuscitation Time spent 35 minutes Kevin Mancilla MD July 29, 2016 15:17
[2016-07-29] MEDS: Codeine-APAP 30-300 mg Tablet PO PRN (20:51)
[2016-07-30] VITALS (10 sets, daily range): BP systolic 123–153; BP diastolic 70–88; PULSE 68–85; RESP 17–22; O2SAT 94–99
[2016-07-30] MEDS: Sodium Chloride LOK Flush 10 mL Syringe IVFLUSH SCH ×3 (00:30→18:06)
[2016-07-30] MEDS: MethylprednisoLONE Sodium Succinate 62.5 mg/mL 2 mL Inj IVPUSH SCH (03:06)
[2016-07-30] MEDS: 0.9% Sodium Chloride 250 ML IV SCH (10:42)
[2016-07-30] MEDS: Furosemide 10 mg/mL 2 mL Inj IVPUSH SCH ×2 (10:42→18:06)
[2016-07-30] MEDS: buPROPion XL 150 mg ER24 Tablet PO SCH (10:43)
[2016-07-30] MEDS: Vitamin B Complex/Vit C Tablet PO SCH (10:43)
--- NOTE | 2016-07-30 10:50 | PROG NOTE ---
[address] [address] PROGRESS NOTE PATIENT: LUIZ ZAVALETA : 1945 MR#: [id number] ADMIT: 07/26/2016 JOB ID: [id number] DATE: 07/30/2016 PROBLEM: 1. Hypoxemia. 2. Pneumonitis. SUBJECTIVE: Breathing a bit more comfortably. However, still gets quite dyspneic with minimal exertion. No cough or sputum production. No chest pain, although at times especially initially she did have a heaviness in her chest that has resolved. Appetite remains poor. Eating some yogurt, but not much more than that. OBJECTIVE: Temperature 36.6, pulse 67 to 78, respiratory rate 17 to 20, blood pressure 150/88, O2 sat on high-flow system with an FiO2 0.45 and a flow rate at 30 L a minute is 95% to 97%. I and O shows 1.6 liters in and 1.9 L out. General appearance thin, obviously ill female lying in bed. No acute distress. Speaking easily though on occasion using the accessory neck muscles of respiration. Chest: Left lung is clear. Chest x-ray shows right basilar pulmonary opacities with right mid lung scarring. There is some hyperinflation consistent with COPD. Left hemithorax is completely opacified secondary to previous pneumonectomy. LABORATORY DATA: Shows a white count of 13,700 with 92 polymorphonuclears, 4 lymphs, 2 monocytes. Hemoglobin stable at 13.2. Platelet count stable at 202,000. Sodium 142, potassium 3.3, chloride 97, CO2 is 29. BUN 24, creatinine 0.7. Calcium is 9.2. Urine for Legionella antigen is negative. Fungal antibodies are negative. Respiratory viral panel of the PCR is negative. ASSESSMENT: Pneumonitis. Most likely the culprit is nivolumab, also concerned about lymphangitic spread of carcinoma as apparently a paratracheal lymph node has been positive on EBUS biopsy. He is being treated with rather high dose steroids, and I think if we were really thinking of no nivolumab pneumonitis than the dose of steroids can be decreased to rather high dose of 2 mg/kg per day of prednisone given in 2 doses. Need to keep an eye on nutrition. She is up in a chair, but hopefully we can start increasing activity in the near future. Right now, it sounds like she gets rather hypoxemic when she does any walking requiring an FiO2 of 0.9 when she is up and around to any extent. PLAN: 1. Decrease prednisone to 60 mg b.i.d. 2. Dietary regarding high-protein high-calorie supplements. 3. Continue high-flow mask at FiO2 0.45 with a flow at 30 L a minute.
[2016-07-30] MEDS: Codeine-APAP 30-300 mg Tablet PO PRN (10:52)
[2016-07-30] MEDS ORDERED: Potassium Chloride 20 mEq SR Tablet PO ONE (11:05)
--- NOTE | 2016-07-30 13:29 | PCM.PNMED ---
Subjective Date of Service July 30, 2016 Subjective She feels somewhat better. She still on high flow oxygen at 35% to 45 liters. Minimal cough. No fevers or chills. No chest pain. No nausea vomiting or abdominal pain. No leg edema. No overnight events. Exam Vital Signs Vital Sign - Last Date Time Temp Pulse Resp B/P Pulse Ox O2 Delivery O2 Flow Rate FiO2 07/30/16 12:27 36.6 85 22 153/87 95 High flow 07/30/16 08:11 30 45 Intake and Output 07/29/16 07/29/16 07/30/16 Cumulative From/Thru 15:00 23:00 07:00 07/26/16 11:03 - 07/30/16 06:28 Intake Total 958 ml 611 ml 7831 ml Output Total 1500 ml 950 ml 8200 ml Balance -542 ml -339 ml -369 ml Intake Oral 840 ml 480 ml 4060 ml IV Total 118 ml 131 ml 3771 ml Tube Irrigant 0 ml Output Urine Total 1500 ml 950 ml 8200 ml # Voids 2 8 # Bowel Movements 1 2 Exam Alert and oriented -3, no distress. Fluent speech Anicteric sclera. Lungs are clear with normal rate and effort, she is on high flow oxygen. She does have some dry rales in the bases of lungs. She has greatly diminished lung sounds on left side from her left lung resection. Heart is regular without murmur gallop or rub Abdomen soft nontender, flat Extremities are free of edema. Skin is free of rash or lesions. IVs and Medications Medications Reviewed: Medications were reviewed in detail Lab and Diagnostics Result Diagram: 07/29/16 0412 07/30/16 0315 Microbiology Viral PCR panel negative; MRSA screen negative; blood cultures negative X-Rays, CTs and MRIs PROCEDURE: CT ANGIO CHEST PULMONARY EMBOLISM ([id number]) FINDINGS: Lungs and pleura: There are postsurgical changes consistent with prior left pneumonectomy with a thick enhancing rind and fluid in the left hemithorax. On the right, there is a new small right pleural effusion. There is increased septal thickening and increased diffuse glass opacities. The findings may represent edema, sequelae of pulmonary venous obstruction, or lymphangitic spread of disease. There are bandlike opacities redemonstrated in the right lung base likely representing scarring. There is a small irregular nodule within the right upper lobe measuring up to 7 mm on series 7 image 17 which is slightly increased in size from the prior study. Mediastinum: Heart size is normal, without pericardial effusion. There is a left chest wall subclavian Port-A-Cath with the tip extending into the right atrium. Thoracic aorta is normal in caliber and enhancement. There are multiple enlarged mediastinal and right hilar lymph nodes redemonstrated including a sales development representative precarinal node measuring up to 1.4 cm in short axis as well as confluent hilar and subcarinal nodes. These are progressively increased compared to the prior studies and are consistent with metastatic disease. Esophagus is normal in caliber, with a small hiatal hernia. IMPRESSION: 1. No evidence of pulmonary embolism in the residual pulmonary arteries. 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 2. Postsurgical changes consistent with prior left pneumonectomy again noted with pleural thickening and fluid opacification of the left hemithorax. 3. Interval increased septal thickening and diffuse groundglass opacities within the right lung may represent pulmonary edema, pulmonary venous obstruction, or lymphangitic spread of disease. 4. New small right pleural effusion with bandlike opacities in the right lung base which may represent scarring, postradiation changes, or pneumonia. 5. Increase in size of a right upper lobe nodule which is nonspecific and may represent metastatic disease. 6. Progressive increase in mediastinal and right hilar lymphadenopathy consistent with baljinder metastases. Dictated by: Curtis Fernandez M.D. on 07/26/2016 at 12:05 . Cardiac Echo Impressions Echocardiogram Report Name: LUIZ ZAVALETA Study Date: 07/27/2016 Interpretation Summary Left ventricular systolic function is normal. The ejection fraction is estimated to be 55-60%. LVEF has not changed since prior study. There are no obvious focal wall motion abnormalities noted but poor endocardial definition reduces the sensitivity for the detection of such. Spectral Doppler of the mitral valve is reversed, with an E/A wave ratio < 0.8. The right ventricle is mild to moderately dilated. Right ventricular systolic function is borderline reduced. The right ventricular systolic pressure is estimated at 52 mmHg assuming a right atrial pressure of 8 mm Hg. Compared to the prior echo exam, there has been an increase in the severity of pulmonary hypertension. The left atrial size is normal. The right atrium is moderately dilated. There is no significant valvular heart disease. The aortic root is normal size. Additional Diagnostics PET Scan Chest 07/04/16: IMPRESSION: 1. Increased FDG avidity involving the left tongue base and left posterior- lateral oropharyngeal wall compared to 03/16/2016. No definite mucosal based mass identified in the region of the increased FDG uptake. Recommend correlation with direct visualization of the oropharyngeal mucosal to exclude the dorsal base mass. 2. Increased FDG uptake in the posterior lateral left chest wall situated between the left fifth-sixth ribs and the left scapula. Finding remains concerning for a metastatic disease. 3. Diffuse, increased FDG uptake involving the right chest wall/right ribs is consistent with metastatic disease. 4. Increased FDG uptake associated with the right diaphragmatic crux and the region of soft tissue thickening suspicious for metastatic disease. 5. Abnormal FDG uptake involving subcarinal and precarinal mediastinal lymph nodes compatible with metastatic lymphadenopathy. The subcarinal mediastinal lymph node is not significant change compared to prior examination. The precarinal mediastinal lymph node is new compared to prior examination and is compatible with progression of disease. 6. There is consolidation in the posterior aspect of the right midlung which demonstrates low level FDG uptake. Finding is unchanged compared prior examination and likely represents post treatment scarring. Dictated by: Kim Tinajero MD, PhD on 07/04/2016 at 15:05 Assessment & Plan # Acute on chronic respiratory failure with hypoxia. Stable to perhaps slowly improving. History suggests progressive decline. Current chest CT suggests progression of interstitial process as well as increased adenopathy. Pulmonary embolism is been ruled out. There is no hypercarbia and ventilation seems adequate. - High flow oxygen support; taper as tolerated - We did explore options for out of hospital respiratory support with depending on how much we can taper up to - Continue high-dose glucocorticoid - Pulmonology consult is following; will guide corticosteroid dosing, will decrease glucocorticoid doses today. # Interstitial pulmonary disease, acute. An stable. Differential seems likely inflammatory or fibrotic process, atypical infection, cancer progression, lymphangitic neoplasm. Unlikely to be heart failure or acute bacterial infection, but these would be treatable. - Continue high-dose glucocorticoid - Discontinue Broad-spectrum antibiotics - continue clarithromycin day # 3 # Elevated BNP, acute. No history of cardiac disease. Stable. Acute right sided heart failure related to hypoxic pulmonary process seems plausible. - Lasix 20 mg twice a day he is currently maintaining neutral fluid status - Consider stopping Lasix in 1-2 days - Minimize IV fluids at present - encourage by mouth intake # Metabolic acidosis, acute. AG is 17 at admission. Resolved. Lactate only slightly elevated. Seems likely to be tissue hypoxia related. - Resolved VTE prophylaxis - Lovenox Disposition: The patient can be downgraded from CCU status in the next few days. We will attempt to wean oxygen as tolerated in the next few days. If her oxygenation needs exceed the capacity of home oxygen support then alternated venues for discharge meds be pursued. CODE STATUS is DNR/DNI GI Prophylaxis: H2 tello VTE Prophylaxis: Sub-Q Enoxaparin Resuscitation Status: CPR: Attempt Resuscitation Graeme Dunlap MD July 30, 2016 13:29
[2016-07-30] MEDS: predniSONE 20 mg Tablet PO SCH (18:05)
[2016-07-30] MEDS ORDERED: MethylprednisoLONE Sodium Succinate 62.5 mg/mL 2 mL Inj IVPUSH SCH (20:30)
[2016-07-31] VITALS (12 sets, daily range): BP systolic 130–158; BP diastolic 78–84; PULSE 60–78; RESP 17–29; O2SAT 89–97
[2016-07-31] MEDS: Sodium Chloride LOK Flush 10 mL Syringe IVFLUSH SCH ×3 (00:30→16:30)
[2016-07-31] MEDS: 0.9% Sodium Chloride 250 ML IV SCH (00:40)
[2016-07-31] MEDS: predniSONE 20 mg Tablet PO SCH ×2 (08:29→17:52)
[2016-07-31] MEDS: Furosemide 10 mg/mL 2 mL Inj IVPUSH SCH ×2 (08:31→16:34)
[2016-07-31] MEDS: Vitamin B Complex/Vit C Tablet PO SCH (08:33)
[2016-07-31] MEDS: buPROPion XL 150 mg ER24 Tablet PO SCH (08:33)
--- NOTE | 2016-07-31 15:19 | PCM.PNMED ---
Subjective Date of Service July 31, 2016 Subjective She is doing fairly well. She feels about the same as yesterday. A lobe of more weak globally. No cough. Still dyspneic and requiring the same amount of high flow oxygen nasal cannula. Minimal cough. No fevers or chills. Some anorexia. No abdominal pain. No overnight events Exam Vital Signs Vital Sign - Last Date Time Temp Pulse Resp B/P Pulse Ox O2 Delivery O2 Flow Rate FiO2 07/31/16 12:07 69 20 142/82 91 07/31/16 08:46 HIGH FLOW 07/31/16 07:54 37.0 07/31/16 04:09 30 45 Intake and Output 07/30/16 07/30/16 07/31/16 Cumulative From/Thru 15:00 23:00 07:00 07/26/16 11:03 - 07/31/16 06:13 Intake Total 835 ml 624 ml 9290 ml Output Total 1000 ml 1500 ml 21754 ml Balance -165 ml -876 ml -1410 ml Intake Oral 710 ml 500 ml 5270 ml IV Total 125 ml 124 ml 4020 ml Tube Irrigant 0 ml Output Urine Total 1000 ml 1500 ml 52640 ml # Voids 3 3 14 # Bowel Movements 1 0 3 Exam Alert and oriented -3, no distress. Fluent speech Anicteric sclera. Lungs diminished, bibasilar dry crackles. Normal effort. High flow oxygen. Heart is regular without murmur gallop or rub Abdomen soft nontender, flat Extremities are free of edema. Skin is free of rash or lesions. Lab and Diagnostics Result Diagram: 07/29/16 0412 07/30/16 0315 Microbiology Viral PCR panel negative; MRSA screen negative; blood cultures negative X-Rays, CTs and MRIs PROCEDURE: CT ANGIO CHEST PULMONARY EMBOLISM ([id number]) FINDINGS: Lungs and pleura: There are postsurgical changes consistent with prior left pneumonectomy with a thick enhancing rind and fluid in the left hemithorax. On the right, there is a new small right pleural effusion. There is increased septal thickening and increased diffuse glass opacities. The findings may represent edema, sequelae of pulmonary venous obstruction, or lymphangitic spread of disease. There are bandlike opacities redemonstrated in the right lung base likely representing scarring. There is a small irregular nodule within the right upper lobe measuring up to 7 mm on series 7 image 17 which is slightly increased in size from the prior study. Mediastinum: Heart size is normal, without pericardial effusion. There is a left chest wall subclavian Port-A-Cath with the tip extending into the right atrium. Thoracic aorta is normal in caliber and enhancement. There are multiple enlarged mediastinal and right hilar lymph nodes redemonstrated including a inside technical sales representative precarinal node measuring up to 1.4 cm in short axis as well as confluent hilar and subcarinal nodes. These are progressively increased compared to the prior studies and are consistent with metastatic disease. Esophagus is normal in caliber, with a small hiatal hernia. IMPRESSION: 1. No evidence of pulmonary embolism in the residual pulmonary arteries. 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 2. Postsurgical changes consistent with prior left pneumonectomy again noted with pleural thickening and fluid opacification of the left hemithorax. 3. Interval increased septal thickening and diffuse groundglass opacities within the right lung may represent pulmonary edema, pulmonary venous obstruction, or lymphangitic spread of disease. 4. New small right pleural effusion with bandlike opacities in the right lung base which may represent scarring, postradiation changes, or pneumonia. 5. Increase in size of a right upper lobe nodule which is nonspecific and may represent metastatic disease. 6. Progressive increase in mediastinal and right hilar lymphadenopathy consistent with baljinder metastases. Dictated by: Curtis Fernandez M.D. on 07/26/2016 at 12:05 . Cardiac Echo Impressions Echocardiogram Report Name: LUIZ ZAVALETA Study Date: 07/27/2016 Interpretation Summary Left ventricular systolic function is normal. The ejection fraction is estimated to be 55-60%. LVEF has not changed since prior study. There are no obvious focal wall motion abnormalities noted but poor endocardial definition reduces the sensitivity for the detection of such. Spectral Doppler of the mitral valve is reversed, with an E/A wave ratio < 0.8. The right ventricle is mild to moderately dilated. Right ventricular systolic function is borderline reduced. The right ventricular systolic pressure is estimated at 52 mmHg assuming a right atrial pressure of 8 mm Hg. Compared to the prior echo exam, there has been an increase in the severity of pulmonary hypertension. The left atrial size is normal. The right atrium is moderately dilated. There is no significant valvular heart disease. The aortic root is normal size. Additional Diagnostics PET Scan Chest 07/04/16: IMPRESSION: 1. Increased FDG avidity involving the left tongue base and left posterior- lateral oropharyngeal wall compared to 03/16/2016. No definite mucosal based mass identified in the region of the increased FDG uptake. Recommend correlation with direct visualization of the oropharyngeal mucosal to exclude the dorsal base mass. 2. Increased FDG uptake in the posterior lateral left chest wall situated between the left fifth-sixth ribs and the left scapula. Finding remains concerning for a metastatic disease. 3. Diffuse, increased FDG uptake involving the right chest wall/right ribs is consistent with metastatic disease. 4. Increased FDG uptake associated with the right diaphragmatic crux and the region of soft tissue thickening suspicious for metastatic disease. 5. Abnormal FDG uptake involving subcarinal and precarinal mediastinal lymph nodes compatible with metastatic lymphadenopathy. The subcarinal mediastinal lymph node is not significant change compared to prior examination. The precarinal mediastinal lymph node is new compared to prior examination and is compatible with progression of disease. 6. There is consolidation in the posterior aspect of the right midlung which demonstrates low level FDG uptake. Finding is unchanged compared prior examination and likely represents post treatment scarring. Dictated by: Kim Tinajero MD, PhD on 07/04/2016 at 15:05 Assessment & Plan # Acute on chronic respiratory failure with hypoxia. Stable to perhaps slowly improving. History suggests progressive decline. Current chest CT suggests progression of interstitial process as well as increased adenopathy. Pulmonary embolism is been ruled out. There is no hypercarbia and ventilation seems adequate. - High flow oxygen support; taper as tolerated - We did explore options for out of hospital respiratory support with depending on how much we can taper up to - Continue high-dose glucocorticoid - Pulmonology consult is following; will guide corticosteroid dosing, will decrease glucocorticoid doses today. #Possible pneumonitis, IVET and stable. Differential seems likely inflammatory or fibrotic process, atypical infection, cancer progression, lymphangitic neoplasm. Unlikely to be heart failure or acute bacterial infection, but these would be treatable. - Continue high-dose glucocorticoid - Discontinue Broad-spectrum antibiotics - continue clarithromycin day # 3 I discussed the possibility of a high resolution CT scan to further delineate the etiology of this problem. # Elevated BNP, acute. No history of cardiac disease. Stable. Acute right sided heart failure related to hypoxic pulmonary process seems plausible. - Lasix 20 mg twice a day he is currently maintaining neutral fluid status - Consider stopping Lasix in 1-2 days - Minimize IV fluids at present - encourage by mouth intake # Metabolic acidosis, acute. AG is 17 at admission. Resolved. Lactate only slightly elevated. Seems likely to be tissue hypoxia related. - Resolved VTE prophylaxis - Lovenox Disposition: The patient can be downgraded from CCU status in the next few days. We will attempt to wean oxygen as tolerated in the next few days. If her oxygenation needs exceed the capacity of home oxygen support then alternated venues for discharge meds be pursued. CODE STATUS is DNR/DNI GI Prophylaxis: H2 tello VTE Prophylaxis: Sub-Q Enoxaparin Resuscitation Status: CPR: Attempt Resuscitation Graeme Dunlap MD July 31, 2016 15:18
--- NOTE | 2016-07-31 16:36 | PROG NOTE ---
[address] [address] PROGRESS NOTE PATIENT: LUIZ ZAVALETA : 1945 MR#: [id number] ADMIT: 07/26/2016 JOB ID: [id number] DATE: 07/31/2016 PULMONARY FOLLOW UP NOTE: PROBLEMS: 1. Interstitial lung disease thought due to chemotherapy. 2. Status post left pneumonectomy for bronchogenic carcinoma. 3. Breast cancer. SUBJECTIVE: States in some ways she is feeling a little bit better today. Had more energy yesterday and got tired. Somewhat less energy today but also feeling less tired. Essentially no cough. No sputum production. Appetite marginal although she is taking adequate quantities of protein and calories at this point. Finds it difficult to get to a bedside commode, and especially rales against the Lasix as it causes shortness of breath due to her having to sit on the side of the bed. OBJECTIVE: Temperature 37, pulse 60-69, respiratory rate 18-20, blood pressure 138/84. O2 sat with high flow with a flow of 30 L a minute and FiO2 of 0.4. General appearance: Sitting upright in bed with head of the bed elevated maybe 75 degrees. Appears somewhat comfortable but with any activity including speaking has some mild use of accessory muscles. With sitting up for a lung examination, O2 drops to 87%, taking a few minutes to recover. Chest: Fair breath sounds bilaterally. A few crackles at the right base posteriorly and somewhat laterally. Left seems a bit clearer. Heart: Regular rhythm. Heart tones normal. Abdomen is soft. 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 On reasonably dosed steroids. Having minimal, if any, effect. Progress which is present is woefully slow. The patient remains very upbeat about her condition. PLAN: 1. Continue current regimen. 2. Continue to work on good nutrition. 3. Difficult to press her to exercise as just minimal exertion leads to significant symptoms and hypoxemia. 4. Continue current dose of prednisone, that being 60 mg twice a day.
[2016-08-01] MEDS: Sodium Chloride LOK Flush 10 mL Syringe IVFLUSH SCH ×3 (00:30→16:09)
[2016-08-01 03:09] VITALS: BP 137/85; PULSE 67; RESP 24; O2SAT 96
[2016-08-01] MEDS: buPROPion XL 150 mg ER24 Tablet PO SCH (08:30)
[2016-08-01 10:49] VITALS: BP 131/75; PULSE 65; RESP 24; O2SAT 93
[2016-08-01] MEDS: Furosemide 10 mg/mL 2 mL Inj IVPUSH SCH ×2 (10:56→16:07)
[2016-08-01] MEDS: predniSONE 20 mg Tablet PO SCH ×2 (10:57→17:23)
[2016-08-01] MEDS: Vitamin B Complex/Vit C Tablet PO SCH (10:58)
--- NOTE | 2016-08-01 12:19 | PCM.PNMED ---
Subjective Date of Service August 01, 2016 Subjective She is doing about the same. She was up in the chair for 2 hours. No cough, fevers, or chills. She still has dyspnea most pronounced with any exertion. She did have a small amount of chest pressure today after transferring from the chair back to the bed. No nausea. Poor appetite. No overnight events. Exam Vital Signs Vital Sign - Last Date Time Temp Pulse Resp B/P Pulse Ox O2 Delivery O2 Flow Rate FiO2 08/01/16 10:49 36.6 65 24 131/75 93 hiflow NC 40 07/31/16 23:35 30 Intake and Output 07/31/16 07/31/16 08/01/16 Cumulative From/Thru 15:00 23:00 07:00 07/26/16 11:03 - 07/31/16 19:54 Intake Total 693 ml 9983 ml Output Total 600 ml 00102 ml Balance 93 ml -1317 ml Intake Oral 480 ml 5750 ml IV Total 213 ml 4233 ml Tube Irrigant 0 ml Output Urine Total 600 ml 30083 ml # Voids 14 # Bowel Movements 3 Exam Alert and oriented -3, no distress. Fluent speech some dyspnea with talking. Anicteric sclera. Lungs are with diminished breath sounds in the left. She also has rales in the right base. She is on high flow oxygen. Heart is regular without murmur gallop or rub Abdomen soft nontender, flat Extremities are free of edema. Skin is free of rash or lesions. IVs and Medications Medications Reviewed: Medications were reviewed in detail Lab and Diagnostics Result Diagram: 07/29/16 0412 07/30/16 0315 Microbiology Viral PCR panel negative; MRSA screen negative; blood cultures negative X-Rays, CTs and MRIs PROCEDURE: CT ANGIO CHEST PULMONARY EMBOLISM ([id number]) FINDINGS: Lungs and pleura: There are postsurgical changes consistent with prior left pneumonectomy with a thick enhancing rind and fluid in the left hemithorax. On the right, there is a new small right pleural effusion. There is increased septal thickening and increased diffuse glass opacities. The findings may represent edema, sequelae of pulmonary venous obstruction, or lymphangitic spread of disease. There are bandlike opacities redemonstrated in the right lung base likely representing scarring. There is a small irregular nodule within the right upper lobe measuring up to 7 mm on series 7 image 17 which is slightly increased in size from the prior study. Mediastinum: Heart size is normal, without pericardial effusion. There is a left chest wall subclavian Port-A-Cath with the tip extending into the right atrium. Thoracic aorta is normal in caliber and enhancement. There are multiple enlarged mediastinal and right hilar lymph nodes redemonstrated including a distribution sales representative precarinal node measuring up to 1.4 cm in short axis as well as confluent hilar and subcarinal nodes. These are progressively increased compared to the prior studies and are consistent with metastatic disease. Esophagus is normal in caliber, with a small hiatal hernia. IMPRESSION: 1. No evidence of pulmonary embolism in the residual pulmonary arteries. 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 2. Postsurgical changes consistent with prior left pneumonectomy again noted with pleural thickening and fluid opacification of the left hemithorax. 3. Interval increased septal thickening and diffuse groundglass opacities within the right lung may represent pulmonary edema, pulmonary venous obstruction, or lymphangitic spread of disease. 4. New small right pleural effusion with bandlike opacities in the right lung base which may represent scarring, postradiation changes, or pneumonia. 5. Increase in size of a right upper lobe nodule which is nonspecific and may represent metastatic disease. 6. Progressive increase in mediastinal and right hilar lymphadenopathy consistent with baljinder metastases. Dictated by: Curtis Fernandez M.D. on 07/26/2016 at 12:05 . Cardiac Echo Impressions Echocardiogram Report Name: LUIZ ZAVALETA Study Date: 07/27/2016 Interpretation Summary Left ventricular systolic function is normal. The ejection fraction is estimated to be 55-60%. LVEF has not changed since prior study. There are no obvious focal wall motion abnormalities noted but poor endocardial definition reduces the sensitivity for the detection of such. Spectral Doppler of the mitral valve is reversed, with an E/A wave ratio < 0.8. The right ventricle is mild to moderately dilated. Right ventricular systolic function is borderline reduced. The right ventricular systolic pressure is estimated at 52 mmHg assuming a right atrial pressure of 8 mm Hg. Compared to the prior echo exam, there has been an increase in the severity of pulmonary hypertension. The left atrial size is normal. The right atrium is moderately dilated. There is no significant valvular heart disease. The aortic root is normal size. Additional Diagnostics PET Scan Chest 07/04/16: IMPRESSION: 1. Increased FDG avidity involving the left tongue base and left posterior- lateral oropharyngeal wall compared to 03/16/2016. No definite mucosal based mass identified in the region of the increased FDG uptake. Recommend correlation with direct visualization of the oropharyngeal mucosal to exclude the dorsal base mass. 2. Increased FDG uptake in the posterior lateral left chest wall situated between the left fifth-sixth ribs and the left scapula. Finding remains concerning for a metastatic disease. 3. Diffuse, increased FDG uptake involving the right chest wall/right ribs is consistent with metastatic disease. 4. Increased FDG uptake associated with the right diaphragmatic crux and the region of soft tissue thickening suspicious for metastatic disease. 5. Abnormal FDG uptake involving subcarinal and precarinal mediastinal lymph nodes compatible with metastatic lymphadenopathy. The subcarinal mediastinal lymph node is not significant change compared to prior examination. The precarinal mediastinal lymph node is new compared to prior examination and is compatible with progression of disease. 6. There is consolidation in the posterior aspect of the right midlung which demonstrates low level FDG uptake. Finding is unchanged compared prior examination and likely represents post treatment scarring. Dictated by: Kim Tinajero MD, PhD on 07/04/2016 at 15:05 Assessment & Plan # Acute on chronic respiratory failure with hypoxia. Stable to perhaps slowly improving. History suggests progressive decline. Current chest CT suggests progression of interstitial process as well as increased adenopathy. Pulmonary embolism is been ruled out. There is no hypercarbia and ventilation seems adequate. - High flow oxygen support; taper as tolerated - We did explore options for out of hospital respiratory support with depending on how much we can taper up to - Continue high-dose glucocorticoid - Pulmonology consult is following; will guide corticosteroid dosing, will decrease glucocorticoid doses today. She remains at 60 mg by mouth twice a day. #Possible pneumonitis, POA and stable. Differential seems likely inflammatory or fibrotic process, atypical infection, cancer progression, lymphangitic neoplasm. Unlikely to be heart failure or acute bacterial infection, but these would be treatable. - Continue high-dose glucocorticoid - Discontinue Broad-spectrum antibiotics - continue clarithromycin day # 3 I discussed the possibility of a high resolution CT scan to further delineate the etiology of this problem. The patient may be stable enough for CT in 2-3 days. # Elevated BNP, acute. No history of cardiac disease. Stable. Acute right sided heart failure related to hypoxic pulmonary process seems plausible. - Lasix 20 mg twice a day he is currently maintaining neutral fluid status -Continue Lasix on a day by day basis. - Minimize IV fluids at present - encourage by mouth intake # Metabolic acidosis, acute. AG is 17 at admission. Resolved. Lactate only slightly elevated. Seems likely to be tissue hypoxia related. - Resolved VTE prophylaxis - Lovenox Disposition: The patient can be downgraded from CCU status in the next few days. We will attempt to wean oxygen as tolerated in the next few days. If her oxygenation needs exceed the capacity of home oxygen support then alternated venues for discharge meds be pursued. CODE STATUS is DNR/DNI GI Prophylaxis: H2 tello VTE Prophylaxis: Sub-Q Enoxaparin VTE Mechanical Devices: Intermittant Pneumatic CD Resuscitation Status: CPR: Attempt Resuscitation Graeme Dunlap MD August 01, 2016 12:19
[2016-08-01] MEDS: Codeine-APAP 30-300 mg Tablet PO PRN ×2 (13:35→17:23)
[2016-08-01] MEDS ORDERED: Nystatin 100,000 Unit/mL 5 mL Suspension PO ONE (15:00)
--- NOTE | 2016-08-01 15:34 | PROG NOTE ---
[address] [address] PROGRESS NOTE PATIENT: LUIZ ZAVALETA : 1945 MR#: [id number] ADMIT: 07/26/2016 JOB ID: [id number] PULMONARY FOLLOWUP NOTE: DATE: 08/01/2016 PROBLEM LIST: 1. Pneumonitis thought secondary to chemotherapy. 2. Status post left pneumonectomy for bronchogenic carcinoma. 3. Breast cancer. SUBJECTIVE: States she is feeling better today. Was apparently up in a chair for a few hours this morning. Ate a little better breakfast. However this afternoon, she is more tired. Realizes she maybe did a little bit too much. Mouth is somewhat sore. Told she has thrush. Appetite picking up slightly. OBJECTIVE: Temperature 36.6, pulse 65, respiratory rate 18-24, blood pressure 131/75, O2 sat on FiO2 is 0.4, 30 L a minute high-flow system is 93%. RT indicates that she was able to ambulate somewhat with FiO2 0.6, able to get up to the chair and sit in a chair for a few hours. With movement she would desaturate but recover quickly with the higher oxygen system. Speaking in shorter phrases. Occasionally gets a full sentence out but not consistently. Mouth: Thrush covering tongue and oropharynx. Chest: Fair breath sounds bilaterally. Diminished more so at the bases. Maybe a few crackles at the right lateral lower lung field. Heart: Regular rhythm with occasional premature beats. Heart tones seem normal. Abdomen soft. Nontender. Bowel tones present. ASSESSMENT: 1. Symptomatically, some improvement but clinically there does not seem much. She thinks her current fatigue and somewhat increased dyspnea is due to increased activity earlier today. Continues to have a very positive outlook on the situation. Will recheck electrolytes and CBC tomorrow along with a chest x-ray to see if we are making any objective improvement or having any problems with her electrolytes. 2. Oral candidiasis. Likely due to the steroids. Will start some antifungal mouthwash for that. PLAN: 1. CBC with diff, platelet count, and CMP in a.m. and also check magnesium and phosphorus. 2. Nystatin suspension now and after meals. 3. Decrease prednisone to 40 mg b.i.d. down from 60 mg b.i.d.
[2016-08-01] MEDS: 0.9% Sodium Chloride 250 ML IV SCH (16:08)
[2016-08-01 16:22] VITALS: BP 130/62; PULSE 89; RESP 22; O2SAT 93
[2016-08-01 16:39] LABS: Mean Corpuscular Hemoglobin 32.5 pg (27.0-35.0); Mean Corpuscular Volume 96.6 fL (81-100)
[2016-08-01 20:12] VITALS: BP 131/78; PULSE 75; RESP 22; O2SAT 93
[2016-08-01 20:44] VITALS: RESP 18; O2SAT 97
[2016-08-02] VITALS (9 sets, daily range): BP systolic 128–151; BP diastolic 70–92; PULSE 62–99; RESP 18–26; O2SAT 93–98
[2016-08-02] MEDS: Sodium Chloride LOK Flush 10 mL Syringe IVFLUSH SCH ×4 (00:30→23:01)
[2016-08-02 04:01] LABS: BASOPHILS % (AUTO) 0.1 % (0-3); EOSINOPHILS % (AUTO) 0 % (0-5); MONOCYTES % (AUTO) 4.9 % (4-12); Mean Corpuscular Hemoglobin 32.2 pg (27.0-35.0); Mean Corpuscular Volume 96.9 fL (81-100); NEUTROPHILS % (AUTO) 90.2 % (40-74); Platelet Count 205 bil/L (150-400)
[2016-08-02 04:25] LABS: Phosphorus 3.9 mg/dL (2.5-4.9)
--- NOTE | 2016-08-02 08:14 | DRSVH ---
PROCEDURE: X-RAY CHEST ONE VIEW, PORTABLE ([id number]) INDICATIONS: pneumonitis due to chemotherapy TECHNIQUE: One view of the chest was acquired. COMPARISON: [facility], CT, CT ANGIO CHEST PE, 07/26/2016, 12:32. [facility], CR, XR CHEST 2VW, 02/17/2016, 12:21. [facility], CR, XR CHEST 1VW (PORTABLE), 07/30/19 17, 4:15. FINDINGS: Surgical changes and devices: Left-sided portacatheter tip projected over the mid SVC. Bilateral ches t wall postoperative change. Lungs and pleura: Complete left hemithorax opacification with ipsilateral shift of the mediastinum co nsistent with previous pneumonectomy. Airspace opacity involves the right infrahilar and lung base s imilar to prior exam whether or also been previously noted scarring. Mediastinum: Mediastinal contours are leftward shifted and obscured but grossly normal. Heart size is normal. Vascular calcifications. Bones and chest wall: No suspicious bony lesions. Overlying soft tissues appear unremarkable. IMPRESSION: 1. Persistent airspace opacity involving the right mid lung and lung base similar to prior chest radi ograph suggestive of pneumonia superimposed upon chronic scarring. Continued radiographic surveillanc e to resolution is recommended. Dictated by: Claude BARLOW Interpreted: Gulshan Ojeda MD on 08/02/2016 at 8:10 Transcribed by: ANGEL on 08/02/2016 at 8:14 Approved by: Gulshan Ojeda M.D. on 08/02/2016 at 12:17
[2016-08-02] MEDS: Furosemide 10 mg/mL 2 mL Inj IVPUSH SCH ×2 (08:31→16:27)
[2016-08-02] MEDS: Vitamin B Complex/Vit C Tablet PO SCH (08:32)
[2016-08-02] MEDS: predniSONE 20 mg Tablet PO SCH (08:32)
[2016-08-02] MEDS: buPROPion XL 150 mg ER24 Tablet PO SCH (08:33)
--- NOTE | 2016-08-02 10:59 | PROG NOTE ---
[address] [address] PROGRESS NOTE PATIENT: LUIZ ZAVALETA : 1945 MR#: [id number] ADMIT: 07/26/2016 JOB ID: [id number] DATE: 08/02/2016 PULMONARY FOLLOW UP NOTE: PROBLEM LIST: 1. Pneumonitis thought secondary to chemotherapy. 2. Status post left pneumonectomy for bronchogenic carcinoma. 3. Breast cancer. Feeling a little bit better today. Breathing a bit more comfortably and able to do a bit more. Was changed from high-flow system last evening to Oxy Mask. Saturating okay. Apparently did reasonably well as she was able to eat with oxygen supplied by nasal prongs and has not had to go back on the high-flow system. Slept well last night with the Oxy Mask. OBJECTIVE: Afebrile. Pulse mid 60s to high 70s. Respiratory rate 18-26, blood pressure 151/97. O2 sat on 6 L a minute by Oxy Mask is 94%. General appearance: Moderately ill appearing. Speaking in short sentences. With speaking mild use of the accessory muscles with a slight tracheal tug. Is a bit breathless speaking. Chest: Anteriorly relatively clear. Did not have her sit up for further examination. Heart: Regular rhythm with occasional premature beats. Abdomen: Soft and nontender. LABORATORY DATA: Shows a white count of 10,900 down from 14,800 yesterday. Significant neutrophilia present on WBC differential. Hematocrit slightly reduced from yesterday down from 46.1 to 43.9. Platelet count 205,000 down from 224,000. Seems to be vacillating within those ranges. Sodium 145, potassium 3.9, chloride 101, CO2 is 31, BUN 27, creatinine 0.6. Glucose elevating likely due to steroids. Calcium 9 with albumin of 3.3. Phosphorus normal at 3.9, magnesium 2. AST normal at 14. ALT somewhat elevated at 62, upper limits of normal being 32. Chest x-ray shows no particular change in the airspace opacity involving the right lung. ASSESSMENT: 1. Pneumonitis secondary to chemotherapy felt to be secondary to check point inhibitor immune-related adverse event. Marginally better on steroids. Not responding as well as would be hoped. Usually there is significant improvement in 3-5 days. Not seeing that here. Data regarding the use of infliximab is rather sparse and rather poor response in the pneumonitis patients that do not respond initially to steroids. However, she is making some progress. Down off the high-flow system, now on nasal prongs and mask. 2. Hyperglycemia due to the steroids. Discussed this with the patient. Assured her that the high sugars which may require insulin is not due to the usual diabetes mellitus but rather a complication of the steroids and hopefully will improve as the steroids are tapered. However, for the moment, she will need coverage. PLAN: Decrease prednisone to 60 mg daily. Would consider decreasing the steroids every week or so maybe initially in 20 mg increments later on and 10 mg increments every week or maybe two weeks depending on how she does. Oftentimes, there is a long road to recovery lasting months. Pulmonary service will sign off at this point. If any questions or problems arise, please feel free to contact me.
[2016-08-02] MEDS: Insulin LISPRO Low-Dose Scale SUBQ SCH ×3 (13:05→22:00)
[2016-08-02] MEDS ORDERED: Insulin Human REGular 300 Unit/3 mL Inj SUBQ SCH (14:30)
--- NOTE | 2016-08-02 15:27 | PCM.PNMED ---
Subjective Date of Service Aug 02, 2016 Subjective Follow for acute hypoxic respiratory failure and pneumonitis. Deon is somewhat better today and off high flow oxygen. No chest pain, no fever no chills, no significant overnight events Exam Vital Signs Vital Sign - Last Date Time Temp Pulse Resp B/P Pulse Ox O2 Delivery O2 Flow Rate FiO2 08/02/16 13:01 36.5 82 25 128/83 93 OxyMask 6.00 08/01/16 20:12 40 Intake and Output 08/01/16 08/01/16 08/02/16 Cumulative From/Thru 15:00 23:00 07:00 07/26/16 11:03 - 08/02/16 06:30 Intake Total 923 ml 500 ml 26519 ml Output Total 1100 ml 450 ml 77838 ml Balance -177 ml 50 ml -1444 ml Intake Oral 720 ml 500 ml 6970 ml IV Total 203 ml 4436 ml Tube Irrigant 0 ml Output Urine Total 1100 ml 450 ml 77011 ml # Voids 14 # Bowel Movements 3 Exam Gen: Ill-appearing female, in bed comfortably, no acute distress HEENT : PERRL sclerae anicteric. Oxygen via facemask Neck : Supple, no stridor, no JVD, trachea is midline Chest : Normal respiratory effort, no use of accessory muscles Lung : Bilateral scattered crackles, no wheezing Heart : S1, S2 regular with no gallop no murmur Abdomen: Soft non tender, non distended, bowel sounds normal all quadrant Ext : No calf tenderness, no cyanosis Neuro : Grossly nonfocal IVs and Medications Medications Reviewed: Medications were reviewed in detail Lab and Diagnostics Result Diagram: 08/02/1634408/02/16344 Microbiology Viral PCR panel negative; MRSA screen negative; blood cultures negative X-Rays, CTs and MRIs PROCEDURE: CT ANGIO CHEST PULMONARY EMBOLISM ([id number]) FINDINGS: Lungs and pleura: There are postsurgical changes consistent with prior left pneumonectomy with a thick enhancing rind and fluid in the left hemithorax. On the right, there is a new small right pleural effusion. There is increased septal thickening and increased diffuse glass opacities. The findings may represent edema, sequelae of pulmonary venous obstruction, or lymphangitic spread of disease. There are bandlike opacities redemonstrated in the right lung base likely representing scarring. There is a small irregular nodule within the right upper lobe measuring up to 7 mm on series 7 image 17 which is slightly increased in size from the prior study. Mediastinum: Heart size is normal, without pericardial effusion. There is a left chest wall subclavian Port-A-Cath with the tip extending into the right atrium. Thoracic aorta is normal in caliber and enhancement. There are multiple enlarged mediastinal and right hilar lymph nodes redemonstrated including a cordage sales representative precarinal node measuring up to 1.4 cm in short axis as well as confluent hilar and subcarinal nodes. These are progressively increased compared to the prior studies and are consistent with metastatic disease. Esophagus is normal in caliber, with a small hiatal hernia. IMPRESSION: 1. No evidence of pulmonary embolism in the residual pulmonary arteries. 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 2. Postsurgical changes consistent with prior left pneumonectomy again noted with pleural thickening and fluid opacification of the left hemithorax. 3. Interval increased septal thickening and diffuse groundglass opacities within the right lung may represent pulmonary edema, pulmonary venous obstruction, or lymphangitic spread of disease. 4. New small right pleural effusion with bandlike opacities in the right lung base which may represent scarring, postradiation changes, or pneumonia. 5. Increase in size of a right upper lobe nodule which is nonspecific and may represent metastatic disease. 6. Progressive increase in mediastinal and right hilar lymphadenopathy consistent with baljinder metastases. Dictated by: Curtis Fernandez M.D. on 07/26/2016 at 12:05 . Cardiac Echo Impressions Echocardiogram Report Name: LUIZ ZAVALETA Study Date: 07/27/2016 Interpretation Summary Left ventricular systolic function is normal. The ejection fraction is estimated to be 55-60%. LVEF has not changed since prior study. There are no obvious focal wall motion abnormalities noted but poor endocardial definition reduces the sensitivity for the detection of such. Spectral Doppler of the mitral valve is reversed, with an E/A wave ratio < 0.8. The right ventricle is mild to moderately dilated. Right ventricular systolic function is borderline reduced. The right ventricular systolic pressure is estimated at 52 mmHg assuming a right atrial pressure of 8 mm Hg. Compared to the prior echo exam, there has been an increase in the severity of pulmonary hypertension. The left atrial size is normal. The right atrium is moderately dilated. There is no significant valvular heart disease. The aortic root is normal size. Additional Diagnostics PET Scan Chest 07/04/16: IMPRESSION: 1. Increased FDG avidity involving the left tongue base and left posterior- lateral oropharyngeal wall compared to 03/16/2016. No definite mucosal based mass identified in the region of the increased FDG uptake. Recommend correlation with direct visualization of the oropharyngeal mucosal to exclude the dorsal base mass. 2. Increased FDG uptake in the posterior lateral left chest wall situated between the left fifth-sixth ribs and the left scapula. Finding remains concerning for a metastatic disease. 3. Diffuse, increased FDG uptake involving the right chest wall/right ribs is consistent with metastatic disease. 4. Increased FDG uptake associated with the right diaphragmatic crux and the region of soft tissue thickening suspicious for metastatic disease. 5. Abnormal FDG uptake involving subcarinal and precarinal mediastinal lymph nodes compatible with metastatic lymphadenopathy. The subcarinal mediastinal lymph node is not significant change compared to prior examination. The precarinal mediastinal lymph node is new compared to prior examination and is compatible with progression of disease. 6. There is consolidation in the posterior aspect of the right midlung which demonstrates low level FDG uptake. Finding is unchanged compared prior examination and likely represents post treatment scarring. Dictated by: Kim Tinajero MD, PhD on 07/04/2016 at 15:05 Assessment & Plan !. Acute on chronic respiratory failure with hypoxia: CT suggests progression of interstitial process as well as increased adenopathy. 2. Pneumonitis : secondary to chemotherapy . Sluggish response to Steroids but slowly improving from respiratrory standpoint - On oxygen via nasal canula form high flow oxygen support. 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 There is a diabetic diet and extending scale insulin with coverage. She will she remained in high-dose steroids for another week or more we will consider a low-dose of basal insulin such as a 5-10 units of Lantus until she gets off the steroids 4. Elevated BNP, acute. Due to the above 5. Metabolic acidosis, acute. . Improved 6. Hypernatremia : Increase free water intake Patient is hemodynamically and clinically stable but still compromised from a respiratory standpoint. Plan of care as above and discussed with critical care . Repeat Chest X-ray and bmp in AM GI Prophylaxis: H2 tello VTE Prophylaxis: Sub-Q Enoxaparin VTE Mechanical Devices: Intermittant Pneumatic CD Resuscitation Status: CPR: Attempt Resuscitation Time spent 35 minutes Shelton Black MD Aug 02, 2016 15:27
[2016-08-02] MEDS: 0.9% Sodium Chloride 250 ML IV SCH (16:20)
[2016-08-02] MEDS: Nystatin 100,000 Unit/mL 5 mL Suspension PO SCH ×2 (17:45→22:50)
[2016-08-03] VITALS (7 sets, daily range): BP systolic 128–143; BP diastolic 78–93; PULSE 58–92; RESP 18–20; O2SAT 92–97
[2016-08-03] MEDS: Insulin LISPRO Low-Dose Scale SUBQ SCH ×4 (08:00→21:45)
[2016-08-03] MEDS: predniSONE 20 mg Tablet PO SCH (08:22)
[2016-08-03] MEDS: Furosemide 10 mg/mL 2 mL Inj IVPUSH SCH ×2 (08:22→16:24)
[2016-08-03] MEDS: Nystatin 100,000 Unit/mL 5 mL Suspension PO SCH ×4 (08:22→21:45)
[2016-08-03] MEDS: Vitamin B Complex/Vit C Tablet PO SCH (08:22)
[2016-08-03] MEDS: buPROPion XL 150 mg ER24 Tablet PO SCH (08:23)
[2016-08-03] MEDS: Sodium Chloride LOK Flush 10 mL Syringe IVFLUSH SCH ×2 (08:23→16:29)
--- NOTE | 2016-08-03 09:57 | DRSVH ---
PROCEDURE: X-RAY CHEST ONE VIEW, PORTABLE ([id number]) INDICATIONS: SHORT OF BREATH TECHNIQUE: One view of the chest was acquired. COMPARISON: [facility], CT, CT CHEST W CON, 07/10/2016, 13:27. [facility], C R, XR CHEST 1VW (PORTABLE), 08/02/2016, 5:18. FINDINGS: Surgical changes and devices: Left-sided portacatheter tip projected over the mid SVC. Bilateral ches t wall postoperative change. Lungs and pleura: Complete left hemithorax opacification with ipsilateral shift of the mediastinum co nsistent with previous pneumonectomy. Airspace opacity involves the right infrahilar and lung base s imilar to prior exam where there also has . been previously noted scarring. Mediastinum: Mediastinal contours are leftward shifted and obscured but grossly normal. Heart size is normal. Vascular calcifications. Bones and chest wall: No suspicious bony lesions. Overlying soft tissues appear unremarkable. IMPRESSION: Persistent airspace opacity involving the right mid lung and lung base similar to priorchest radiogra ph suggestive of pneumonia superimposed upon chronic scarring. Continued radiographic surveillance t o resolution is recommended. Dictated by: Claude BARLOW Interpreted: Raheem Snell MD on 08/03/2016 at 9:55 Transcribed by: SOHAM on 08/03/2016 at 9:57 Approved by: Raheem Snell M.D. on 08/03/2016 at 11:37
--- NOTE | 2016-08-03 11:51 | PCM.PNMED ---
Subjective Date of Service Aug 03, 2016 Subjective Patient seen and examined . She is feeling better today she said. She is still short of breath on exertion and remains on 5 liters of oxygen for adequate saturation No chest pain, no fever, no chills Exam Vital Signs Vital Sign - Last Date Time Temp Pulse Resp B/P Pulse Ox O2 Delivery O2 Flow Rate FiO2 08/03/16 08:38 Supplement Oxygen 08/03/16 08:17 36.6 66 20 133/93 93 5.00 08/01/16 20:12 40 Intake and Output 08/02/16 08/02/16 08/03/16 Cumulative From/Thru 15:00 23:00 07:00 07/26/16 11:03 - 08/03/16 06:21 Intake Total 134 ml 1100 ml 120 ml 65920 ml Output Total 1300 ml 350 ml 77077 ml Balance 134 ml -200 ml -230 ml -1740 ml Intake Oral 1100 ml 120 ml 8190 ml IV Total 134 ml 4570 ml Tube Irrigant 0 ml Output Urine Total 1300 ml 350 ml 58991 ml # Voids 14 # Bowel Movements 2 5 Exam Gen: Ill-appearing female, no acute distress HEENT : PERRL sclerae anicteric. Neck : Supple, no stridor, no JVD, trachea is midline, no cervical lymphadenopahty. Chest : Normal respiratory effort, no use of accessory muscles Lung : Bilateral scattered crackles, no wheezing Heart : S1, S2 regular with no gallop no murmur Abdomen: Soft non tender, non distended, bowel sounds normal all quadrant Ext : No calf tenderness, no cyanosis, no edema Neuro : Grossly intact IVs and Medications Medications Reviewed: Medications were reviewed in detail Lab and Diagnostics Result Diagram: 08/02/16 0345 08/03/16 0445 Microbiology Viral PCR panel negative; MRSA screen negative; blood cultures negative X-Rays, CTs and MRIs PROCEDURE: CT ANGIO CHEST PULMONARY EMBOLISM ([id number]) FINDINGS: Lungs and pleura: There are postsurgical changes consistent with prior left pneumonectomy with a thick enhancing rind and fluid in the left hemithorax. On the right, there is a new small right pleural effusion. There is increased septal thickening and increased diffuse glass opacities. The findings may represent edema, sequelae of pulmonary venous obstruction, or lymphangitic spread of disease. There are bandlike opacities redemonstrated in the right lung base likely representing scarring. There is a small irregular nodule within the right upper lobe measuring up to 7 mm on series 7 image 17 which is slightly increased in size from the prior study. Mediastinum: Heart size is normal, without pericardial effusion. There is a left chest wall subclavian Port-A-Cath with the tip extending into the right atrium. Thoracic aorta is normal in caliber and enhancement. There are multiple enlarged mediastinal and right hilar lymph nodes redemonstrated including a customer response representative precarinal node measuring up to 1.4 cm in short axis as well as confluent hilar and subcarinal nodes. These are progressively increased compared to the prior studies and are consistent with metastatic disease. Esophagus is normal in caliber, with a small hiatal hernia. IMPRESSION: 1. No evidence of pulmonary embolism in the residual pulmonary arteries. 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 2. Postsurgical changes consistent with prior left pneumonectomy again noted with pleural thickening and fluid opacification of the left hemithorax. 3. Interval increased septal thickening and diffuse groundglass opacities within the right lung may represent pulmonary edema, pulmonary venous obstruction, or lymphangitic spread of disease. 4. New small right pleural effusion with bandlike opacities in the right lung base which may represent scarring, postradiation changes, or pneumonia. 5. Increase in size of a right upper lobe nodule which is nonspecific and may represent metastatic disease. 6. Progressive increase in mediastinal and right hilar lymphadenopathy consistent with baljinder metastases. Dictated by: Curtis Fernandez M.D. on 07/26/2016 at 12:05 Chest X-ray 08/03/2016 reviwed : .Persistent airspace opacity involving the right mid lung and lung base similar to priorchest radiograph suggestive of pneumonia superimposed upon chronic scarring. Continued radiographic surveillance to resolution is recommended. Cardiac Echo Impressions Echocardiogram Report Name: LUIZ ZAVALETA Study Date: 07/27/2016 Interpretation Summary Left ventricular systolic function is normal. The ejection fraction is estimated to be 55-60%. LVEF has not changed since prior study. There are no obvious focal wall motion abnormalities noted but poor endocardial definition reduces the sensitivity for the detection of such. Spectral Doppler of the mitral valve is reversed, with an E/A wave ratio < 0.8. The right ventricle is mild to moderately dilated. Right ventricular systolic function is borderline reduced. The right ventricular systolic pressure is estimated at 52 mmHg assuming a right atrial pressure of 8 mm Hg. Compared to the prior echo exam, there has been an increase in the severity of pulmonary hypertension. The left atrial size is normal. The right atrium is moderately dilated. There is no significant valvular heart disease. The aortic root is normal size. Additional Diagnostics PET Scan Chest 07/04/16: IMPRESSION: 1. Increased FDG avidity involving the left tongue base and left posterior- lateral oropharyngeal wall compared to 03/16/2016. No definite mucosal based mass identified in the region of the increased FDG uptake. Recommend correlation with direct visualization of the oropharyngeal mucosal to exclude the dorsal base mass. 2. Increased FDG uptake in the posterior lateral left chest wall situated between the left fifth-sixth ribs and the left scapula. Finding remains concerning for a metastatic disease. 3. Diffuse, increased FDG uptake involving the right chest wall/right ribs is consistent with metastatic disease. 4. Increased FDG uptake associated with the right diaphragmatic crux and the region of soft tissue thickening suspicious for metastatic disease. 5. Abnormal FDG uptake involving subcarinal and precarinal mediastinal lymph nodes compatible with metastatic lymphadenopathy. The subcarinal mediastinal lymph node is not significant change compared to prior examination. The precarinal mediastinal lymph node is new compared to prior examination and is compatible with progression of disease. 6. There is consolidation in the posterior aspect of the right midlung which demonstrates low level FDG uptake. Finding is unchanged compared prior examination and likely represents post treatment scarring. Dictated by: Kim Tinajero MD, PhD on 07/04/2016 at 15:05 Assessment & Plan !. Acute on chronic respiratory failure with hypoxia: CT suggests progression of interstitial process as well as increased adenopathy. 2. Pneumonitis : secondary to chemotherapy . Sluggish response to Steroids but slowly improving from respiratory standpoint - Curently on 5 liters of oxygen via face mask. We`ll continue to wean off as tolerated 3. Steroid-induced diabetes : Patient is currently on high does of prednisone at 60 mg daily. Diabetic diet and sliding scale insulin with coverage. blood sugar quite improve today and running in the 130-150 . Should she be remained in high-dose steroids for another week or more , we will consider a low-dose of basal insulin such as a 5-10 units of Lantus until she gets off the steroids 4. Elevated BNP, acute. Due to the above 5. Metabolic acidosis, acute. . Improved 6. Hypernatremia : Increase free water intake Slow clonical improvement , though repeat chest X-ray today shows no changes . Out of be encouraged . PT evaluation and recommendation Discharge planning GI Prophylaxis: H2 tello VTE Prophylaxis: Sub-Q Enoxaparin VTE Mechanical Devices: Intermittant Pneumatic CD Resuscitation Status: CPR: Attempt Resuscitation Time spent 35 minutes Shelton Black MD Aug 03, 2016 11:51
[2016-08-03] MEDS: 0.9% Sodium Chloride 250 ML IV SCH (16:24)
[2016-08-04] MEDS: Sodium Chloride LOK Flush 10 mL Syringe IVFLUSH SCH ×3 (00:30→17:03)
[2016-08-04 00:57] VITALS: BP 120/79; PULSE 65; RESP 20; O2SAT 95
[2016-08-04 04:05] VITALS: BP 140/76; PULSE 53; RESP 18; O2SAT 94
[2016-08-04] MEDS: Insulin LISPRO Low-Dose Scale SUBQ SCH ×4 (08:00→21:49)
[2016-08-04 08:45] VITALS: BP 111/70; PULSE 64; RESP 18; O2SAT 92
--- NOTE | 2016-08-04 10:40 | PCM.PNMED ---
Subjective Date of Service Aug 04, 2016 Subjective Follow up for respiratory failure, peritonitis No significant interval changes, No new complaints Exam Vital Signs Vital Sign - Last Date Time Temp Pulse Resp B/P Pulse Ox O2 Delivery O2 Flow Rate FiO2 08/04/16 08:45 36.6 64 18 111/70 92 OxyMask 6.00 08/01/16 20:12 40 Intake and Output 08/03/16 08/03/16 08/04/16 Cumulative From/Thru 15:00 23:00 07:00 07/26/16 11:03 - 08/04/16 06:25 Intake Total 128 ml 992 ml 350 ml 31131 ml Output Total 2200 ml 325 ml 83403 ml Balance 128 ml -1208 ml 25 ml -2795 ml Intake Oral 880 ml 350 ml 9420 ml IV Total 128 ml 112 ml 4810 ml Tube Irrigant 0 ml Output Urine Total 2200 ml 325 ml 43408 ml # Voids 14 # Bowel Movements 5 Exam Gen: no acute distress, in bed comfortably. HEENT : PERRL sclerae anicteric. Oxygen via facemask Neck : Supple, no stridor, no JVD, trachea is midline Chest : Normal respiratory effort, no use of accessory muscles Lung : left lung is silent. Right with scattered crackles bilaterally. Heart : S1, S2 regular with no gallop no murmur Abdomen: Soft non tender, non distended, bowel sounds normal all quadrant Ext : No calf tenderness, no cyanosis Neuro : Grossly intact IVs and Medications Medications Reviewed: Medications were reviewed in detail Lab and Diagnostics Result Diagram: 08/02/16 0345 08/03/16 0445 Microbiology Viral PCR panel negative; MRSA screen negative; blood cultures negative X-Rays, CTs and MRIs PROCEDURE: CT ANGIO CHEST PULMONARY EMBOLISM ([id number]) FINDINGS: Lungs and pleura: There are postsurgical changes consistent with prior left pneumonectomy with a thick enhancing rind and fluid in the left hemithorax. On the right, there is a new small right pleural effusion. There is increased septal thickening and increased diffuse glass opacities. The findings may represent edema, sequelae of pulmonary venous obstruction, or lymphangitic spread of disease. There are bandlike opacities redemonstrated in the right lung base likely representing scarring. There is a small irregular nodule within the right upper lobe measuring up to 7 mm on series 7 image 17 which is slightly increased in size from the prior study. Mediastinum: Heart size is normal, without pericardial effusion. There is a left chest wall subclavian Port-A-Cath with the tip extending into the right atrium. Thoracic aorta is normal in caliber and enhancement. There are multiple enlarged mediastinal and right hilar lymph nodes redemonstrated including a business services representative precarinal node measuring up to 1.4 cm in short axis as well as confluent hilar and subcarinal nodes. These are progressively increased compared to the prior studies and are consistent with metastatic disease. Esophagus is normal in caliber, with a small hiatal hernia. IMPRESSION: 1. No evidence of pulmonary embolism in the residual pulmonary arteries. 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 2. Postsurgical changes consistent with prior left pneumonectomy again noted with pleural thickening and fluid opacification of the left hemithorax. 3. Interval increased septal thickening and diffuse groundglass opacities within the right lung may represent pulmonary edema, pulmonary venous obstruction, or lymphangitic spread of disease. 4. New small right pleural effusion with bandlike opacities in the right lung base which may represent scarring, postradiation changes, or pneumonia. 5. Increase in size of a right upper lobe nodule which is nonspecific and may represent metastatic disease. 6. Progressive increase in mediastinal and right hilar lymphadenopathy consistent with baljinder metastases. Dictated by: Curtis Fernandez M.D. on 07/26/2016 at 12:05 Chest X-ray 08/03/2016 reviwed : .Persistent airspace opacity involving the right mid lung and lung base similar to priorchest radiograph suggestive of pneumonia superimposed upon chronic scarring. Continued radiographic surveillance to resolution is recommended. Cardiac Echo Impressions Echocardiogram Report Name: LUIZ ZAVALETA Study Date: 07/27/2016 Interpretation Summary Left ventricular systolic function is normal. The ejection fraction is estimated to be 55-60%. LVEF has not changed since prior study. There are no obvious focal wall motion abnormalities noted but poor endocardial definition reduces the sensitivity for the detection of such. Spectral Doppler of the mitral valve is reversed, with an E/A wave ratio < 0.8. The right ventricle is mild to moderately dilated. Right ventricular systolic function is borderline reduced. The right ventricular systolic pressure is estimated at 52 mmHg assuming a right atrial pressure of 8 mm Hg. Compared to the prior echo exam, there has been an increase in the severity of pulmonary hypertension. The left atrial size is normal. The right atrium is moderately dilated. There is no significant valvular heart disease. The aortic root is normal size. Additional Diagnostics PET Scan Chest 07/04/16: IMPRESSION: 1. Increased FDG avidity involving the left tongue base and left posterior- lateral oropharyngeal wall compared to 03/16/2016. No definite mucosal based mass identified in the region of the increased FDG uptake. Recommend correlation with direct visualization of the oropharyngeal mucosal to exclude the dorsal base mass. 2. Increased FDG uptake in the posterior lateral left chest wall situated between the left fifth-sixth ribs and the left scapula. Finding remains concerning for a metastatic disease. 3. Diffuse, increased FDG uptake involving the right chest wall/right ribs is consistent with metastatic disease. 4. Increased FDG uptake associated with the right diaphragmatic crux and the region of soft tissue thickening suspicious for metastatic disease. 5. Abnormal FDG uptake involving subcarinal and precarinal mediastinal lymph nodes compatible with metastatic lymphadenopathy. The subcarinal mediastinal lymph node is not significant change compared to prior examination. The precarinal mediastinal lymph node is new compared to prior examination and is compatible with progression of disease. 6. There is consolidation in the posterior aspect of the right midlung which demonstrates low level FDG uptake. Finding is unchanged compared prior examination and likely represents post treatment scarring. Dictated by: Kim Tinajero MD, PhD on 07/04/2016 at 15:05 Assessment & Plan 1. Acute on chronic respiratory failure with hypoxia: CT suggests progression of interstitial process as well as increased adenopathy. 2. Pneumonitis : secondary to chemotherapy . Sluggish response to Steroids but slowly improving from respiratory standpoint - Currently on 4 liters of oxygen via face mask. This is her baseline home oxygen ( 4.5 liters) 3. Steroid-induced diabetes : Will cut down on predinsone to a maintenance dose of 40 mg daily and probably keep her on a daily dose of basal insulin until she gets off the steroid Continue diabetic diet and sliding scale insulin with coverage. 4. Elevated BNP, acute. Due to the above 5. Metabolic acidosis, acute. . Improved 6. Hypernatremia : Increase free water intake Slow clinical improvement , though repeat chest X-ray today shows no changes . Out of be encouraged . PT evaluation and recommendation for discharge recommendation pending Discharge anticipated within 48 hours. [facility] prognosis is poor GI Prophylaxis: H2 tello VTE Prophylaxis: Sub-Q Enoxaparin VTE Mechanical Devices: Intermittant Pneumatic CD Resuscitation Status: CPR: Attempt Resuscitation Time spent 25 minutes Shelton Black MD Aug 04, 2016 10:40
[2016-08-04] MEDS: predniSONE 20 mg Tablet PO SCH (11:35)
[2016-08-04] MEDS: buPROPion XL 150 mg ER24 Tablet PO SCH (11:35)
[2016-08-04] MEDS: Vitamin B Complex/Vit C Tablet PO SCH (11:35)
[2016-08-04] MEDS: Nystatin 100,000 Unit/mL 5 mL Suspension PO SCH ×4 (11:36→21:47)
[2016-08-04] MEDS: Furosemide 10 mg/mL 2 mL Inj IVPUSH SCH ×2 (11:37→16:19)
--- NOTE | 2016-08-04 13:13 | PROG NOTE ---
[address] [address] PROGRESS NOTE PATIENT: LUIZ ZAVALETA : 1945 MR#: [id number] ADMIT: 07/26/2016 JOB ID: [id number] DATE: 08/04/2016 SUBJECTIVE: This is a 71-year-old woman who has been followed in [facility]cology [facility] long-term for recurrent squamous carcinoma of the lung and a prior history of breast cancer. She has had a left pneumonectomy for lung cancer and has been treated for a second lung cancer on the right side. Has had both radiation and chemotherapy. She is in the hospital since July 26, when she presented with respiratory failure; acute on chronic, and diffuse ground-glass infiltrates in her remaining right lung. The working diagnosis according to Dr. Fuentes's note of August 02, 2016 is that she has chemotherapy-induced pneumonitis; the patient was nivolumab immune therapy which has been associated with pulmonary reactions, and because of this she has been on steroid treatment with a gradual but unexpectedly long recovery. Subjectively, she states she feels somewhat better day by day. She has been having some physical therapy and is able to get up on her feet and move around her room. She is still quite dyspneic at rest but feels that when she is not moving around she is getting enough air. She has no pain at this point in time and has a fair appetite. OBJECTIVE: Her p.o. intake through the end of August 02, was 1600 mL, IV total 134 mL. Weight relatively stable at 64.8 kg. She has remained afebrile with a temp of 37, pulse 58, respiratory rate 18, blood pressure 132/84, and pulse ox 95% on 5 L flow rate. Head and neck: She appears alert and talkative, although she can only speak with short sentences because of her dyspnea. Pupils equal, round, reactive. Oral mucosa appears without thrush at this time. The lung romano on the left side have faint transmitted sounds from the right. The right side is clear to auscultation anteriorly and laterally without rales or rhonchi. Cardiac rhythm is regular. There is no peripheral edema. Abdomen is soft, nontender. Bowel sounds active. LABORATORY VALUES: The results on August 02 were a white count of 10.9, with 90.2 segs, hemoglobin 14.6, hematocrit 43.9, platelets 205. The BUN and creatinine 25 and 0.6. Electrolytes normal except for CO2 of 31, glucose 143, calcium 8.8. These electrolytes were on August 03. AST normal, ALT slightly elevated at 62, albumin fair at 3.3. ASSESSMENT AND RECOMMENDATIONS: The working diagnosis of nivolumab-induced pulmonary toxicity is being carried forward and is the basis for treatment with steroids. The actual cause of her diffuse current ground-glass infiltrates remains in the differential diagnosis and in any case she is no longer a candidate for checkpoint inhibitor therapy because she progressed on that. In terms of her cancer treatment, I have indicated to her that the presence of malignancy is not an immediate threat to her life, and that her main threat to survival is her pulmonary function which is not directly related to her cancer. With that said, the PET-CT scan is very difficult to interpret as is noted in the report and how much of the PET-CT scan findings are related to progressive malignancy and how much are related to inflammation remains an open question. In any case, we should be very reluctant to initiate any further cancer treatment given the balance of risk between her pulmonary function and the less urgent need to treat her cancer. It is hoped that she will be able to be discharged on home O2 and with some assistance at home in the near future.
[2016-08-04] MEDS: Codeine-APAP 30-300 mg Tablet PO PRN (13:36)
[2016-08-04 16:06] VITALS: BP 110/71; PULSE 65; RESP 20; O2SAT 95
[2016-08-04] MEDS: 0.9% Sodium Chloride 250 ML IV SCH (17:03)
[2016-08-04 22:54] VITALS: BP 135/55; PULSE 76; RESP 20; O2SAT 99
[2016-08-05] MEDS: Sodium Chloride LOK Flush 10 mL Syringe IVFLUSH SCH ×3 (00:30→16:30)
[2016-08-05 06:21] VITALS: PULSE 80; RESP 18; O2SAT 96
[2016-08-05 08:00] VITALS: BP 127/79; PULSE 71; RESP 20; O2SAT 97
[2016-08-05] MEDS: Insulin LISPRO Low-Dose Scale SUBQ SCH ×2 (08:00→12:00)
[2016-08-05] MEDS: predniSONE 20 mg Tablet PO SCH (08:42)
[2016-08-05] MEDS: Furosemide 10 mg/mL 2 mL Inj IVPUSH SCH ×2 (08:43→16:00)
[2016-08-05] MEDS: Nystatin 100,000 Unit/mL 5 mL Suspension PO SCH ×2 (08:43→13:23)
[2016-08-05] MEDS: Vitamin B Complex/Vit C Tablet PO SCH (08:45)
[2016-08-05] MEDS: buPROPion XL 150 mg ER24 Tablet PO SCH (08:51)
--- NOTE | 2016-08-05 11:23 | PCM.DIMED ---
Discharge Instructions Date of Service Aug 05, 2016 Dates of Hospitalization July 26, 2016 at 14:40 Discharge Diagnosis Discharge Diagnosis 1. Acute on chronic respiratory failure with hypoxia 2. Pneumonitis/Interstitial pneumonia 3. Steroid-induced diabetes 4. Elevated BNP, acute. 5. Metabolic acidosis 6. Hypernatremia 7. Lung cancer s/o left lung resection Diet Discharge Diet: No restrictions, Diabetic Activity Discharge Activity: No restrictions Call your provider Call your provider for: Fever or Chills Patient Instructions Patient Instructions Primary care doctor to taper Steroid Follow-up with PCP in: 1 week (Primary care doctor and Oncology ) Shelton Black MD Aug 05, 2016 11:23
[2016-08-05] MEDS ORDERED: IPRA3AMP NEB (11:26)
[2016-08-05] MEDS ORDERED: PRED-508 PO (11:26)
--- NOTE | 2016-08-05 11:28 | PCM.DIMED ---
Discharge Instructions Date of Service Aug 05, 2016 Dates of Hospitalization July 26, 2016 at 14:40 Discharge Diagnosis Discharge Diagnosis 1. Acute on chronic respiratory failure with hypoxia 2. Pneumonitis/Interstitial pneumonia 3. Steroid-induced diabetes 4. Elevated BNP, acute. 5. Metabolic acidosis 6. Hypernatremia 7. Lung cancer s/o left lung resection Diet Discharge Diet: No restrictions, Diabetic Activity Discharge Activity: No restrictions Call your provider Call your provider for: Fever or Chills Patient Instructions Patient Instructions Primary care doctor to taper Steroid Home health care and Home nursing services to monitor vitals and help with medications Home physical therapy to enhance mobility and potentially ambulation Follow-up with PCP in: 1 week (Primary care doctor and Oncology ) Shelton Black MD Aug 05, 2016 11:28
--- NOTE | 2016-08-05 11:36 | PCM.DC.MED ---
Discharge Summary Date of Service Aug 05, 2016 Dates of Hospitalization Date of Hospital Admission July 26, 2016 at 14:40 Date of Discharge: Aug 05, 2016 Providers: Admitting Physician: Kevin Mancilla MD Primary Care Physician: Jone Bull MD Attending Physician: Kevin Mancilla MD Diagnosis at Time of Discharge Diagnosis at Time of Discharge 1. Acute on chronic respiratory failure with hypoxia 2. Pneumonitis/Interstitial pneumonia 3. Steroid-induced diabetes 4. Elevated BNP, acute. 5. Metabolic acidosis 6. Hypernatremia 7. Lung cancer s/o left lung resection Consultations Oncology : recommendation is : In terms of her cancer treatment, I have indicated to her that the presence of malignancy is not an immediate threat to her life, and that her main threat to survival is her pulmonary function which is not directly related to her cancer. With that said, the PET-CT scan is very difficult to interpret as is noted in the report and how much of the PET-CT scan findings are related to progressive malignancy and how much are related to inflammation remains an open question. In any case, we should be very reluctant to initiate any further cancer treatment given the balance of risk between her pulmonary function and the less urgent need to treat her cancer. It is hoped that she will be able to be discharged on home O2 and with some assistance at home in the near future. Procedures XRay, CTs & MRIs PROCEDURE: CT ANGIO CHEST PULMONARY EMBOLISM ([id number]) FINDINGS: Lungs and pleura: There are postsurgical changes consistent with prior left pneumonectomy with a thick enhancing rind and fluid in the left hemithorax. On the right, there is a new small right pleural effusion. There is increased septal thickening and increased diffuse glass opacities. The findings may represent edema, sequelae of pulmonary venous obstruction, or lymphangitic spread of disease. There are bandlike opacities redemonstrated in the right lung base likely representing scarring. There is a small irregular nodule within the right upper lobe measuring up to 7 mm on series 7 image 17 which is slightly increased in size from the prior study. Mediastinum: Heart size is normal, without pericardial effusion. There is a left chest wall subclavian Port-A-Cath with the tip extending into the right atrium. Thoracic aorta is normal in caliber and enhancement. There are multiple enlarged mediastinal and right hilar lymph nodes redemonstrated including a artist representative precarinal node measuring up to 1.4 cm in short axis as well as confluent hilar and subcarinal nodes. These are progressively increased compared to the prior studies and are consistent with metastatic disease. Esophagus is normal in caliber, with a small hiatal hernia. IMPRESSION: 1. No evidence of pulmonary embolism in the residual pulmonary arteries. 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 2. Postsurgical changes consistent with prior left pneumonectomy again noted with pleural thickening and fluid opacification of the left hemithorax. 3. Interval increased septal thickening and diffuse groundglass opacities within the right lung may represent pulmonary edema, pulmonary venous obstruction, or lymphangitic spread of disease. 4. New small right pleural effusion with bandlike opacities in the right lung base which may represent scarring, postradiation changes, or pneumonia. 5. Increase in size of a right upper lobe nodule which is nonspecific and may represent metastatic disease. 6. Progressive increase in mediastinal and right hilar lymphadenopathy consistent with baljinder metastases. Dictated by: Curtis Fernandez M.D. on 07/26/2016 at 12:05 Chest X-ray 08/03/2016 reviwed : .Persistent airspace opacity involving the right mid lung and lung base similar to priorchest radiograph suggestive of pneumonia superimposed upon chronic scarring. Continued radiographic surveillance to resolution is recommended. Cardiac Echo Impression Echocardiogram Report Name: LUIZ ZAVALETA Study Date: 07/27/2016 Interpretation Summary Left ventricular systolic function is normal. The ejection fraction is estimated to be 55-60%. LVEF has not changed since prior study. There are no obvious focal wall motion abnormalities noted but poor endocardial definition reduces the sensitivity for the detection of such. Spectral Doppler of the mitral valve is reversed, with an E/A wave ratio < 0.8. The right ventricle is mild to moderately dilated. Right ventricular systolic function is borderline reduced. The right ventricular systolic pressure is estimated at 52 mmHg assuming a right atrial pressure of 8 mm Hg. Compared to the prior echo exam, there has been an increase in the severity of pulmonary hypertension. The left atrial size is normal. The right atrium is moderately dilated. There is no significant valvular heart disease. The aortic root is normal size. Other Diagnostics PET Scan Chest 07/04/16: IMPRESSION: 1. Increased FDG avidity involving the left tongue base and left posterior- lateral oropharyngeal wall compared to 03/16/2016. No definite mucosal based mass identified in the region of the increased FDG uptake. Recommend correlation with direct visualization of the oropharyngeal mucosal to exclude the dorsal base mass. 2. Increased FDG uptake in the posterior lateral left chest wall situated between the left fifth-sixth ribs and the left scapula. Finding remains concerning for a metastatic disease. 3. Diffuse, increased FDG uptake involving the right chest wall/right ribs is consistent with metastatic disease. 4. Increased FDG uptake associated with the right diaphragmatic crux and the region of soft tissue thickening suspicious for metastatic disease. 5. Abnormal FDG uptake involving subcarinal and precarinal mediastinal lymph nodes compatible with metastatic lymphadenopathy. The subcarinal mediastinal lymph node is not significant change compared to prior examination. The precarinal mediastinal lymph node is new compared to prior examination and is compatible with progression of disease. 6. There is consolidation in the posterior aspect of the right midlung which demonstrates low level FDG uptake. Finding is unchanged compared prior examination and likely represents post treatment scarring. Dictated by: Kim Tinajero MD, PhD on 07/04/2016 at 15:05 Brief History The patient has chronic lung disease with a diagnosis of COPD, as well as history of left lung resection for NSCLC. She has been dependent on 2-4 L home oxygen for many months. Approximately 1 month ago she began to experience worsening dyspnea. She was evaluated in oncology clinic and home oxygen flow rate was increased from 2 to 4 L in early 07/2016. Patient and her notes that her dyspnea has been progressive since that time, frequently failing to maintain 90% saturation on 4 L at home. Her dyspnea is worse with activity. Not orthopnea. No cough, fever or phlegm. No pleuritic pain. She is largely limited bed to chair with minimal activities at home. Her decline has been continuous. It takes her 4 hours to get ready for doctors appointments which she did today, and subsequently found herself so breathless she presented to emergency department. She was noted to have 88% oxygen saturation on 6L O2. She was treated with high-flow O2, maintaining barely adequate O2 saturation. The patient has a complicated cancer history. After initial treatment of breast cancer in 2009 she was recently noted to have recurrent breast nodules. A biopsy of the right breast revealed invasive ductal carcinoma. Tumor marker CA.27.29 is elevated. She recently underwent PET scanning on 07/04/16 which revealed chest wall and pericarinal lymph nodes. She has been treated with letrozole. She has recently been treated with immune checkpoint therapy ( nivolumab) infusions every 2 weeks, last infusion was 2 wk ago. Hospital Course 1. Acute on chronic respiratory failure with hypoxia: CT suggests progression of interstitial process as well as increased adenopathy. Patient has h/o chronic respiratory failure following lung resection . She is on 4.5 liters of oxygen at home 2. Pneumonitis : secondary to chemotherapy . Sluggish response to Steroids but slowly improving from respiratory standpoint - Currently on 4 liters of oxygen via face mask. This is her baseline home oxygen ( 4.5 liters) 3. Steroid-induced diabetes . Diabetic diet and teaching Continue Predispose 40 mg daily . start Lantus 5 units s/c daily Follow up with PCP to adjust insulin and taper of steroids 4. Elevated BNP, acute. 5. Metabolic acidosis, acute. . Improved 6. Hypernatremia : resolved Patient is back to his baseline . She is now on 4 liters of oxygen . She is known to have chronic respiratory failure PT evaluation and recommendation to SNF but patient refused . prison prognosis is poor Exam Vital Signs (Last) Date Time Temp Pulse Resp B/P Pulse Ox O2 Delivery O2 Flow Rate FiO2 08/05/16 06:21 80 18 96 OxyMask 6.00 08/04/16 22:54 36.5 135/55 08/01/16 20:12 40 Exam Gen: Chronically Ill-appearing female, in bed comfortably, no acute distress HEENT : PERRL sclerae anicteric. Oxygen via facemask Neck : Supple, no stridor, no JVD, trachea is midline Chest : Normal respiratory effort, no use of accessory muscles Lung : Left lung silent . Right side with scattered crackles Heart : S1, S2 regular with no gallop no murmur Abdomen: Soft non tender, non distended, bowel sounds normal all quadrant Ext : No calf tenderness, no cyanosis Neuro : AAO x 3, non focal Test 07/26/16 11:15 07/26/16 16:30 07/26/16 16:43 07/26/16 18:29 D-Dimer 2.19mg/L FEU (<0.50) Lactic Acid Level 1.9mmol/L (0.4-2.0) Troponin T < 0.010ug/L (0.0-0.011) Pro-B-Type Natriuretic Peptide 1315pg/mL (0-301) Procalcitonin 0.06ng/mL (0.00-0.08) Urine Legionella pneumophilia Ag Negative (Negative) Urine Color Yellow (YELLOW) Urine Appearance Clear (CLEAR,HAZY) Urine pH 5.5 (5.0-8.0) Urine Specific [place] 1.020 (1.003-1.035) Urine Protein Negativemg/dL (NEG,TRACE) Urine Glucose (UA) Negativemg/dL (NEGATIVE) Urine Ketones Negativemg/dL (NEGATIVE) Urine Occult Blood Negative (NEGATIVE) Urine Nitrite Negative (NEGATIVE) Urine Bilirubin Negative (NEGATIVE) Urine Urobilinogen Normalmg/dL (NORMAL) Urine Leukocyte Esterase Negative (NEGATIVE) Urine RBC 0-2/hpf (0-2) Urine WBC 0-5/hpf (0-5) Urine Epithelial Cells Few/hpf (NONE-MOD) Urine Crystals None seen (NONE SEEN) Urine Bacteria Few/hpf (NONE-FEW) Urine Hyaline Casts None/lpf (NONE) Urine Granular Casts None seen (NONE SEEN) Urine Waxy Casts None seen (NONE SEEN) Urine Red Blood Cell Casts None seen (NONE SEEN) Urine White Blood Cell Casts None seen (NONE SEEN) Urine Mucus None seen (None Seen) Urine Trichomonas None seen (NONE SEEN) Urine Yeast None (NONE SEEN) Urinalysis Comment None Urine Culture Reflexed Not indicated Fungal Antibodies <31pg/mL (<80) Test 07/28/16 04:30 08/02/16 03:45 08/02/16 16:30 08/03/16 04:45 Vancomycin Level Trough 19.5mcg/mL White Blood Count 10.9th/mm3 (3.8-10.1) Red Blood Count 4.53mil/mm3 (3.90-5.20) Hemoglobin 14.6g/dL (12.0-15.6) Hematocrit 43.9% (35.0-46.0) Mean Corpuscular Volume 96.9fL (81-100) Mean Corpuscular Hemoglobin 32.2pg (27.0-35.0) Mean Corpuscular Hemoglobin Concent 33.3% (32.0-37.0) Red Cell Distribution Width 12.6% (12.3-15.4) Platelet Count 205bil/L (150-400) Neutrophils (%) (Auto) 90.2% (40-74) Lymphocytes (%) (Auto) 3.3% (14-46) Monocytes (%) (Auto) 4.9% (4-12) Eosinophils (%) (Auto) 0% (0-5) Basophils (%) (Auto) 0.1% (0-3) Hemoglobin A1c 6.0% (4.8-5.6) Phosphorus Level 3.9mg/dL (2.5-4.9) Magnesium Level 2.0mg/dL (1.6-2.6) Total Bilirubin 0.4mg/dL (0.0-1.2) Aspartate Amino Transf (AST/SGOT) 14U/L (0-50) Alanine Aminotransferase (ALT/SGPT) 62U/L (0-32) Alkaline Phosphatase 95U/L (25-165) Total Protein 5.7g/dL (6.4-8.4) Albumin 3.3g/dL (3.4-5.0) Hold [place] Top Tube Received (Received) Sodium Level 139mEq/L (134-144) Potassium Level 4.0mEq/L (3.5-5.2) Chloride Level 98mEq/L (97-108) Carbon Dioxide Level 31mmol/L (18-29) Blood Urea Nitrogen 25mg/dL (8-27) Creatinine 0.60mg/dL (0.57-1.00) Estimat Glomerular Filtration Rate 142mL/min (>59) Glucose Level 143mg/dL (60-99) Calcium Level 8.8mg/dL (8.5-10.1) Microbiology Results Viral PCR panel negative; MRSA screen negative; blood cultures negative Discharge Medications Discharge Medications Aspirin (Aspirin) 81 Mg Tablet 81 MG PO QAM (Reported) Bupropion ER (Wellbutrin XL) 150 Mg Tab.er.24h 150 MG PO DAILY (Reported) Cholecalciferol (Vitamin D3) (Vitamin D) 1,000 Unit Capsule 1,000 UNIT PO QAM ( Reported) Citalopram (Citalopram) 20 Mg Tablet 20 MG PO QAM (Reported) Clonazepam (Clonazepam) 0.5 Mg Tablet 0.5 MG PO BID (Reported) Cyanocobalamin (Vitamin B-12) (Vitamin B-12) 500 Mcg Tab.subl 500 MCG SL QAM ( Reported) Furosemide (Furosemide) 20 Mg Tab 20 MG PO QAM (Reported) Letrozole (Letrozole) 2.5 Mg Tablet 2.5 MG PO DAILY (Reported) Metoprolol Tartrate (Metoprolol Tartrate) 25 Mg Tablet 25 MG PO DAILY (Reported ) Oxybutynin Chloride ER (Oxybutynin Chloride ER) 5 Mg Tab.er.24 5 MG PO DAILY ( Reported) Pilocarpine (Pilocarpine) 5 Mg Tablet 5 MG PO BID (Reported) Potassium Chloride (Potassium Chloride) 10 Meq Capsule.er 10 MEQ PO DAILY ( Reported) TAKE WITH FOOD Prednisone (Deltasone) 20 Mg Tablet 40 MG PO Q24 Prescribed by: QUIN BLACK MD Ranitidine (Zantac) 150 Mg Tablet 150 MG PO QAM (Reported) Vit B Comp/C/FA/Iron/Vit E (Vitamin B Complex Tablet) 1 Each Tablet 1 EACH PO DAILY (Reported) As needed Acetaminophen/Codeine 300-30mg (Tylenol/Codeine #3) 1 Each Tablet 1 TABLET PO Q6H PRN PRN Pain (Reported) Ipratropium/Albuterol Sulfate (Iprat-Albut 0.5-3(2.5) mg/3 mL Inhalant Soln) 3 Ml Ampul.neb 3 ML NEB Q4H PRN PRN For Shortness of Breath Prescribed by: QUIN BLACK MD Lorazepam (Lorazepam) 1 Mg Tablet 0.5-1 MG PO DAILY PRN PRN For Anxiety ( Reported) Prochlorperazine Maleate (Compazine) 10 Mg Tablet 10 MG PO Q6H PRN PRN For Nausea (Reported) Followup Plan Disposition: Home with home health Discharge Diet: No restrictions, Diabetic Discharge Activity: No restrictions Patient Instructions Primary care doctor to taper Steroid Home health care and Home nursing services to monitor vitals and help with medications Home physical therapy to enhance mobility and potentially ambulation Follow-up with PCP in: 1 week (Primary care doctor and Oncology ) Time spent 53 minutes Quin Black MD Aug 05, 2016 11:36
[2016-08-05] MEDS ORDERED: INSU100V7 SUBQ (11:49)
[2016-08-05 12:00] VITALS: BP 128/72; PULSE 78; RESP 18; O2SAT 98
[2016-08-05] MEDS: 0.9% Sodium Chloride 250 ML IV SCH (16:22)
== END 2016-08-05 17:30 | disposition home health service (06) | DRG 189 ==
LOC: EDBD 11:03 → SED 11:03 → EDUNIT# 11:03 → CCU 14:40 → PCC 07-27 18:01
PROVIDERS: ADMIT Internal Medicine; ATTEND Internal Medicine
PROC: 4A033R1 Measurement of Arterial Saturation, Peripheral, Percutaneous Approach (ICD-10-PCS; principal; 2016-07-26)
DX: J96.21 Acute and chronic respiratory failure with hypoxia (principal); C77.1 Secondary and unspecified malignant neoplasm of intrathoracic lymph nodes; E87.2 Acidosis; B37.0 Candidal stomatitis; E87.0 Hyperosmolality and hypernatremia; C34.90 Malignant neoplasm of unspecified part of unspecified bronchus or lung; T45.1X5A Adverse effect of antineoplastic and immunosuppressive drugs, initial encounter; J70.4 Drug-induced interstitial lung disorders, unspecified; Z85.118 Personal history of other malignant neoplasm of bronchus and lung; Z90.2 Acquired absence of lung [part of]; Z85.3 Personal history of malignant neoplasm of breast; I10 Essential (primary) hypertension; E78.5 Hyperlipidemia, unspecified; Z79.82 Long term (current) use of aspirin; F41.9 Anxiety disorder, unspecified; J44.9 Chronic obstructive pulmonary disease, unspecified; Z99.81 Dependence on supplemental oxygen; Z86.718 Personal history of other venous thrombosis and embolism; Z87.891 Personal history of nicotine dependence; T38.0X5A Adverse effect of glucocorticoids and synthetic analogues, initial encounter; E09.9 Drug or chemical induced diabetes mellitus without complications